=== PATIENT | male | born 1935 | race Asian ===

== ENCOUNTER 2018-02-14 18:44 | Inpatient (IN) | payer OTHER ==
[~2018-02-14] VITALS: Ht 172.7 cm; Wt 63.0 kg
--- NOTE | 2018-02-14 18:44 | NUR ---
PT BIBA TO ER BED 05
[2018-02-14 18:49] VITALS: BP 129/86
--- NOTE | 2018-02-14 18:55 | NUR ---
82Y BIB BIBA FROM [facility] FOR LEFT FEMUR FX. SHORTENING AND ROTATION OF LEFT LEG. CAP RE-FILL < 3 SECONDS. PULSE +3. PAIN UPON MOVEMENT. PT WITH HX OF DEMENTIA. PT IS AWAKE AND ALERT. RR AR EVEN AND UNLABORED. VSS. AWAITING ER MD SCHERER. WILL CONTINUE TO MONITOR.
[2018-02-14] MEDS ORDERED: HEPA500056 SUBQ (18:57)
[2018-02-14] MEDS ORDERED: TRAM50TA1 PO (19:06)
[2018-02-14] MEDS ORDERED: ACET-2869 PO (19:06)
[2018-02-14] MEDS ORDERED: MELO15TA11 PO (19:06)
[2018-02-14] MEDS ORDERED: BISA-213 RC (19:06)
[2018-02-14] MEDS ORDERED: QUET25TA PO (19:06)
[2018-02-14] MEDS ORDERED: METO50TE2 PO (19:06)
[2018-02-14] MEDS ORDERED: IRBE300T56 PO (19:06)
[2018-02-14] MEDS ORDERED: ESOM40EC PO (19:06)
[2018-02-14] MEDS ORDERED: SENN-3 PO (19:06)
[2018-02-14] MEDS ORDERED: SITA50TA3 PO (19:06)
[2018-02-14] MEDS ORDERED: ATA25 PO (19:06)
--- NOTE | 2018-02-14 19:19 | NUR ---
Pt report given to alison marcelino. Transfer of care at this time.
--- NOTE | 2018-02-14 19:20 | NUR ---
pt laying in bed, vss, in no apparent distress at this time.
[2018-02-14] MEDS ORDERED: NACL 0.9% 1,000 ML IV ONE (19:30)
[2018-02-14] MEDS ORDERED: fentaNYL 0.05 MG/ML VIAL IVP ONE (19:30)
--- NOTE | 2018-02-14 19:39 | NUR ---
X-Ray at bedside.
--- NOTE | 2018-02-14 19:59 | NUR ---
lab at bedside
[2018-02-14 20:30] LABS: ANION GAP 13.5 (8-16); CARBON DIOXIDE 26.4 mmol/L (21-32); CHLORIDE 101 mmol/L (98-107); CREATININE 1.4 mg/dL (0.7-1.3); GLUCOSE 137 mg/dL (74-106); POTASSIUM 4.9 mmol/L (3.5-5.1); SODIUM SERUM 136 mmol/L (136-145); UREA NITROGEN, BLOOD 26 mg/dL (7-18)
[2018-02-14 20:31] LABS: BASOPHILS # (AUTO) 0.1 K/uL (0.00-0.22); BASOPHILS % (AUTO) 1.1 % (0.0-2.0); EOSINOPHILS # (AUTO) 0.2 K/uL (0-0.4); EOSINOPHILS % (AUTO) 3.2 % (0.0-4.0); HEMATOCRIT 37.8 % (36-52); HEMOGLOBIN 12.5 g/dL (12.0-18.0); LYMPHOCYTES # (AUTO) 1.5 K/uL (2.0-11.5); LYMPHOCYTES % (AUTO) 24.2 % (20.5-51.1); MEAN CORPUSCULAR HEMOGLOBIN 33 pg (27-31); MEAN CORPUSCULAR HGB CONC 33 g/dL (33-37); MEAN CORPUSCULAR VOLUME 100.6 fL (80-94); MONOCYTES # (AUTO) 0.5 K/uL (0.8-1.0); MONOCYTES % (AUTO) 7.8 % (1.7-9.3); NEUTROPHILS # (AUTO) 3.9 K/uL (1.8-7.7); NEUTROPHILS % (AUTO) 63.7 % (42.2-75.2); PLATELET COUNT (AUTO) 280 K/uL (140-450); RED BLOOD CELL COUNT(AUTO) 3.76 MIL/uL (4.20-6.10); RED CELL DISTRIBUTION WIDTH 15.3 % (11.6-13.7); WHITE BLOOD COUNT (AUTO) 6.2 K/uL (4.8-10.8)
[2018-02-14 20:45] LABS: PROTHROMBIN TIME 10.9 secs (10.8-13.4)
--- NOTE | 2018-02-14 21:24 | NUR ---
PT TAKEN TO CT VIA PEPITO PT AWAKE
--- NOTE | 2018-02-14 21:57 | NUR ---
Patient will be admitted to care of DR. DENNEY. Admited to TELE. Will go to room 122-A. Belongings list completed. Report to BERNARD.
[2018-02-14] MEDS ORDERED: NACL 0.9% 1,000 ML IV SCH (22:06)
[2018-02-14] MEDS ORDERED: DOCUSATE SODIUM 100 MG GELCAP PO PRN (22:10)
[2018-02-14] MEDS ORDERED: ACETAMINOPHEN 325 MG TAB PO PRN (22:10)
[2018-02-14] MEDS ORDERED: HYDROcodone/APAP 7.5/325 MG 1 TAB PO PRN (22:10)
--- NOTE | 2018-02-14 22:25 | NUR ---
Pt transferred to Tele via BED 122A WITH TRIPP WYLIE AND TOMMY MACEDO.
--- NOTE | 2018-02-14 22:28 | NUR ---
DR. LYNNE EVALUATING PATIENT
[2018-02-14 22:55] LABS: CHOL/HDL RATIO 4.3 (1-4.5); FREE T4 (FREE THYROXINE) 1.34 ng/dL (0.76-1.46); MAGNESIUM 1.7 mg/dL (1.8-2.4); PHOSPHORUS 3.8 mg/dL (2.5-4.9); THYROID STIMULATING HORMONE 0.61 uIU/mL (0.34-3.74)
--- NOTE | 2018-02-14 23:00 | NUR ---
PT ARRIVED TO UNIT VIA GURNEY ACCOMPANIED BY WINEMAKER AND PARACHUTE RIGGER. RECEIVED REPORT AT PT BEDSIDE FROM WINEMAKER, FOR CONTINUITY OF CARE. PATIENT IS A/OX2 TO SELF AND PLACE. PT ON ROOM AIR. 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 PT IS NPO. PATIENT HAS 20G IV TO RIGHT FOREARM. RESPIRATIONS EVEN AND UNLABORED. UPDATED BOARD. VITAL SIGNS WITHIN NORMAL LIMITS. PT STABLE, NO SIGNS OF DISTRESS NOTED AT THIS TIME. BED IN LOWEST POSITION, BED ALARM ON. CALL LIGHT WITHIN REACH, WILL CONTINUE TO MONITOR. Addendum: 02/15/18 at 0620 by Virginia Banda RN SKIN NOT INTACT, PT HAS HEALING SURGICAL INCISION TO RIGHT HIP.
[2018-02-15] VITALS: BP 157/87
--- NOTE | 2018-02-15 01:00 | NUR ---
SET UP IV FLUIDS AT A RATE OF 100ML/HR PER ORDER PT TOLERATING WELL. PT TAKING OFF TELE MONITOR. EDUCATED PT ON KEEPING TELE MONITOR ON AND PUT IT ON HIM AGAIN. PT TOOK IT OFF IMMEDIATELY AND THREW IT. INFORMED DR LYNNE, HE SAID "OK" NO ORDERS GIVEN.
[2018-02-15] MEDS ORDERED: METF500T PO (01:57)
[2018-02-15] MEDS ORDERED: traMADol 50 MG TAB PO PRN (02:55)
[2018-02-15] MEDS ORDERED: BISACODYL 10 MG SUPP RC PRN (02:55)
[2018-02-15] MEDS ORDERED: HYDROcodone/APAP 5/325 MG 1 TAB TAB PO PRN (02:55)
[2018-02-15] MEDS ORDERED: DEXTROSE 50% 50 ML SYR IVP PRN (03:05)
[2018-02-15] MEDS ORDERED: INSULIN LISPRO SLIDING SCALE 100 UNITS/ML VIAL SUBQ PRN (03:05)
--- NOTE | 2018-02-15 03:48 | NUR ---
PT STATES TO CALL POLICE AND TELL THEM TO TAKE HIM TO [place]. PT SEEMS CONFUSED, ORIENTED HIM AND PT NOW MORE CALMED.
[2018-02-15 04:00] VITALS: BP 155/86
--- NOTE | 2018-02-15 05:13 | NUR ---
PT WILL NOT ALLOW FOR TELE MONITOR APPLICATION. PT STILL SAYING HE WANTS TO GO TO [place], ORIENTED PT TO SITUATION AGAIN, PT VERBALIZED UNDERSTANDING AGAIN.
--- NOTE | 2018-02-15 05:45 | NUR ---
EKG OBTAINED AND CHARTED.
[2018-02-15] MEDS: BLOOD GLUCOSE MONITORING 1 DEV DEV FS SCH ×2 (06:18→12:25)
[2018-02-15 06:55] LABS: EOSINOPHILS # (AUTO) 0.2 K/uL (0-0.4); EOSINOPHILS % (AUTO) 4.6 % (0.0-4.0); HEMATOCRIT 38.5 % (36-52); HEMOGLOBIN 12.7 g/dL (12.0-18.0); LYMPHOCYTES # (AUTO) 1.6 K/uL (2.0-11.5); LYMPHOCYTES % (AUTO) 32.3 % (20.5-51.1); MEAN CORPUSCULAR HEMOGLOBIN 33 pg (27-31); MEAN CORPUSCULAR HGB CONC 33 g/dL (33-37); MEAN CORPUSCULAR VOLUME 100.9 fL (80-94); MONOCYTES # (AUTO) 0.4 K/uL (0.8-1.0); MONOCYTES % (AUTO) 8.1 % (1.7-9.3); NEUTROPHILS # (AUTO) 2.7 K/uL (1.8-7.7); PLATELET COUNT (AUTO) 279 K/uL (140-450); RED BLOOD CELL COUNT(AUTO) 3.82 MIL/uL (4.20-6.10); RED CELL DISTRIBUTION WIDTH 14.9 % (11.6-13.7); WHITE BLOOD COUNT (AUTO) 4.9 K/uL (4.8-10.8)
[2018-02-15 07:20] LABS: MAGNESIUM 1.6 mg/dL (1.8-2.4); PHOSPHORUS 3.5 mg/dL (2.5-4.9)
--- NOTE | 2018-02-15 07:30 | NUR ---
ENDORSED PT TO DAY SHIFT RN FOR CONTINUITY OF CARE. PT IN STABLE CONDITION.
--- NOTE | 2018-02-15 07:31 | NUR ---
RECEIVED PT FROM PM NURSE AT BEDSIDE FOR CONTUINITY OF CARE. PT AOX2. HAS IV 22G ON RT FA, IV INFUSING WELL. CODE STATUS NOT DETERMINED AT THIS TIME. CHARGE NURSE INFORMED. WILL FOLLOW UP WITH RESIDENT. PT STABLE AT THIS TIME. NO SIGN OF DISTRESS. WILL CONTINUE TO MONITOR PT.
[2018-02-15] MEDS ORDERED: DEXT 5% / NACL 0.45% 1,000 ML IV SCH (07:50)
[2018-02-15 08:00] VITALS: BP 154/88
[2018-02-15 08:32] LABS: ALBUMIN 3.1 g/dL (3.4-5.0); ANION GAP 14.6 (8-16); ASPARTATE AMINOTRANSFERASE 14 U/L (15-37); CARBON DIOXIDE 25.5 mmol/L (21-32); CHLORIDE 102 mmol/L (98-107); CREATININE 1.2 mg/dL (0.7-1.3); GLUCOSE 109 mg/dL (74-106); POTASSIUM 5.1 mmol/L (3.5-5.1); SODIUM SERUM 137 mmol/L (136-145); TOTAL BILIRUBIN 1.3 mg/dL (0.0-1.0); UREA NITROGEN, BLOOD 21 mg/dL (7-18)
--- NOTE | 2018-02-15 08:45 | NUR ---
PATIENT HAS BEEN SCREENED AND CATEGORIZED MODERATE NUTRITION RISK. PATIENT WILL BE SEEN WITHIN 3-5 DAYS OF ADMISSION. 02/17/18 02/19/[address]
[2018-02-15] MEDS ORDERED: hydrOXYzine HCL 25 MG TAB PO SCH (09:00)
[2018-02-15] MEDS ORDERED: METOPROLOL SUCCINATE 50 MG TABER PO SCH (09:00)
[2018-02-15] MEDS ORDERED: metFORMIN 500 MG TAB PO SCH (09:00)
[2018-02-15] MEDS ORDERED: SENNA 8.6 MG TAB PO SCH (09:00)
[2018-02-15] MEDS ORDERED: PANTOPRAZOLE 40 MG TABEC PO SCH (09:00)
[2018-02-15] MEDS ORDERED: VALSARTAN 80 MG TAB PO SCH (09:00)
--- NOTE | 2018-02-15 09:30 | NUR ---
ADMINISTERED MEDICATION ORDERED. PT TOLERATED WELL. DENIES PAIN AT THIS TIME. PT AT BEDSIDE TO PUT PT ON VANESSA'S TRACTION AND TRAPEZE. PT LITTLE CONFUSED, NO FACIAL GRIMACING. NO SIGN OF DISTRESS.SAFETY MEASURE IN PLACE. WILL CONTINUE TO MONITOR PT.
[2018-02-15] MEDS ORDERED: MAG SULF 2000 MG/WATER PREMIX 100 ML IV SCH (10:00)
--- NOTE | 2018-02-15 10:30 | NUR ---
PT ASSISTED WITH BED FOR BM AND URINAL . HAD BM MODERATE AND URINATED. NO SIGN OF DISTRESS. PYROTECHNIST AT BEDSIDE. PT ON VANESSA'S TRACTION AND TRAPEZE. ORIENTED PT THAT HE IS IN HOSPITAL. CALL LIGHT WITHIN REACH. TAUGHT TO USE CALL LIGHT. PT HAD RETUN DEMONSTRATION. BED AT LOWER POSITION. WILL CONTINUE TO MONITOR PT.
[2018-02-15] MEDS ORDERED: HUMSLIDE SUBQ (10:35)
[2018-02-15] MEDS ORDERED: ACET-1182 PO (10:35)
[2018-02-15] MEDS ORDERED: GLUC-805 FS (10:35)
[2018-02-15] MEDS ORDERED: DOCU-299 PO (10:35)
[2018-02-15] MEDS ORDERED: ACET-9529 PO (10:35)
[2018-02-15] MEDS ORDERED: D50SYR IVP (10:35)
--- NOTE | 2018-02-15 10:52 | NUR ---
PT NOTES CHART REVIEWED AND CLEARED FOR PT BY RN TO APPLY VANESSA TRACTION AND OHT. PATIENT IN SEMIFOWLER POSITION RESTING, DENIES PAIN AT THIS TIME AND EDUCATION ON BUCKS TRACTION/OHT APPLICATION. VERBALIZED UNDERSTANDING AND ABLE TO UTILIZE OHT TO REPOSITION SELF HIGHER IN BED. BUCKS TRACTION APPLIED BY 2ND PT STAFF WITH 7LBS. NO PAIN OF FACIAL GRIMACING NOTED/EXPRESSED. PATIENT REPOSITIONED IN BED WITH PROPER ALIGNMENT WITH BUCKS BOOT. TRAY AND CALL LIGHT IN REACH. OHTx1 AND BUCKS TRACTION APPLICATIONx1 Addendum: 02/15/18 at 1519 by Lauren Cortez PT PHYSICAL THERAPY CO-SIGN The Physical Therapy Progress Notes documented by Business Leader have been reviewed. Reviewed/Co-Signed by: Lauren Cortez,PT Documentation Done by: Bill Metzger PTA
--- NOTE | 2018-02-15 11:13 | NUR ---
Spoke to Oniel greenhouse staff at [facility] and I faxed face sheet, h&p and the order. Oniel called back and received the fax and will call the floor when bed available.
--- NOTE | 2018-02-15 11:31 | NUR ---
ADMINISTERED MAGNESIUM RIDER TO PT. PT TOLERATING WELL. WILL CONTINUE TO MONITOR PT.
[2018-02-15 12:00] VITALS: BP 161/82
--- NOTE | 2018-02-15 12:00 | NUR ---
PT ON BEDSIDE, SITTING AND HAVING LUNCH. NO SIGN OF DISTRESS. BS 124 NOTED. ALL SAFETY MEASURE IN PLACE . WILL CONTINUE TO MONITOR.
--- NOTE | 2018-02-15 13:00 | NUR ---
PT TOO MUCH CONFUSED. CONTINUES TO GET OUT OF BED. PULLED OUT HIS IV. OREINTED PT NOT TO GET OFF THE BED. PT ON VANESSA TRACTION. CONTINUOUS ORIENTATION NEEDED AT THIS TIME. ALL SAFETY MEASURE IN PLACE. WILL CONTINUE TO MONITOR PT.
--- NOTE | 2018-02-15 13:22 | NUR ---
Called Oniel the nursing sup. at [place] and stated that there is no bed available at this time but will have one available in 2-3 hours. He has the MST number and will call when bed available.
--- NOTE | 2018-02-15 14:51 | NUR ---
NORMA ARENASO CALLED AND GAVE ROOM 240-B, DRILLER MULTIPLE SPINDLE TIME WILL BE 5:30 PM, REPORT TO
--- NOTE | 2018-02-15 15:00 | NUR ---
PT PULLED HIS IV OUT. REINSERTED HIS IV , OMID ALMAGUER AT BEDSIDE FOR HELP. REORIENTED PT NOT TO PULL HIS IV. CONTINUE TO TRY GETTING OUT OF BED. ALL SAFETY MEASURE IN PLACE. WILL CONTINUE TO MONITOR PT.
--- NOTE | 2018-02-15 17:25 | NUR ---
CALLED TO [facility]. GAVE REPORT TO TRIPP DOSHI OVER THE PHONE. ASKED TICO TO CALL IF ANY QUESTIONS REGARDING PT. [facility] AT BEDSIDE TO RUG UNDERLAY MACHINE OPERATOR PT. ASSISTED TRANSFERRING TO [facility]. PT HAS PERIPHERAL LINE ON RT FA 20G. PT STABLE AT THIS TIME . PT LEFT THE HOSPITAL WITH ALL HIS BELONGINGS.
[2018-02-15] MEDS ORDERED: QUEtiapine FUMARATE 25 MG TAB PO SCH (21:00)
[2018-02-16 08:16] LABS: T4 (THYROXINE) 10.3 ug/dL (4.5-12.0)
--- NOTE | 2018-02-19 07:49 | NUR ---
WOUND CARE EVALUATION NOT DONE, PT. DISCHARGED.
== END 2018-02-15 17:25 | disposition short-term general hospital (02) | DRG 535 ==
LOC: MED 18:44 → MTU 22:08
PROVIDERS: ADMIT General Practice; ATTEND General Practice
DX: S72.012A Unspecified intracapsular fracture of left femur, initial encounter for closed fracture (principal); N17.0 Acute kidney failure with tubular necrosis; D68.59 Other primary thrombophilia; J98.11 Atelectasis; E11.65 Type 2 diabetes mellitus with hyperglycemia; K21.9 Gastro-esophageal reflux disease without esophagitis; I10 Essential (primary) hypertension; F41.9 Anxiety disorder, unspecified; F03.90 Unspecified dementia, unspecified severity, without behavioral disturbance, psychotic disturbance, mood disturbance, and anxiety; Z86.73 Personal history of transient ischemic attack (TIA), and cerebral infarction without residual deficits; W17.89XA Other fall from one level to another, initial encounter; Y93.89 Activity, other specified; Y92.89 Other specified places as the place of occurrence of the external cause; Y99.8 Other external cause status; E78.1 Pure hyperglyceridemia; E11.51 Type 2 diabetes mellitus with diabetic peripheral angiopathy without gangrene; Z87.81 Personal history of (healed) traumatic fracture
CPT/HCPCS: 36415; 71045; 72192; 73502; 80048; 80053; 82150; 82948; 83036; 83690; 83735; 83880; 84100; 84436; 84439; 84443; 84479; 84484; 85025; 85610; 85730; 86886; 86900; 86901; 87081; 93005; 96361; 96374; 99285; J1815; J3010; J3475; J7030

== ENCOUNTER 2018-03-06 10:39 | Inpatient (IN) | payer OTHER, MEDICAID ==
[~2018-03-06] VITALS: Ht 152.4 cm; Wt 63.1 kg
[~2018-03-06 10:39] MED LIST: ACET-1182 PO; ACET-2869 PO; ACET-9529 PO; ATA25 PO; BISA-213 RC; D50SYR IVP; DOCU-299 PO; ESOM40EC PO; GLUC-805 FS; HEPA500056 SUBQ; HUMSLIDE SUBQ; IRBE300T56 PO; MELO15TA11 PO; METF500T PO; METO50TE2 PO; QUET25TA PO; SENN-3 PO; SITA50TA3 PO; TRAM50TA1 PO
[2018-03-06 10:43] VITALS: BP 114/71
--- NOTE | 2018-03-06 10:43 | NUR ---
PT BIBA BLS TO ER BED 03
[2018-03-06] MEDS ORDERED: ZOLP10TA1 PO (10:54)
[2018-03-06] MEDS ORDERED: SLIDE SUBQ (10:54)
--- NOTE | 2018-03-06 11:00 | NUR ---
PATIENT PRESENTS TO ED BIBA FOR C/O ONE EPISODE OF N/V DARK RED BLOOD DURING PHYSICAL THERAPY AT [facility]. PT DENIES ABD PAIN, DIZZINESS OR SOB. PT CURRNETLY ON BLOOD THINNER FOR BEING APPROXIMATELY 16 DAYS STATUS POST LEFT HIP REPLACEMENT DR TOTH. HX: DEMENTIA, HTN, DM, CVA, RT HIP REPLACEMENT. DENIES DIARRHEA; SKIN IS PINK/WARM/DRY; AAOX4 WITH EVEN AND STEADY GAIT; LUNGS CLEAR BL; HR EVEN AND REGULAR; PT DENIES ANY FEVER, CP, SOB, OR COUGH AT THIS TIME; PATIENT STATES PAIN OF 0/10 AT THIS TIME; VSS; PATIENT POSITIONED FOR COMFORT; HOB ELEVATED; BEDRAILS UP X2; BED DOWN. ER MD MADE AWARE OF PT STATUS.
[2018-03-06] MEDS ORDERED: PANTOPRAZOLE 40 MG INJ VIAL IVP ONE (11:35)
[2018-03-06] MEDS ORDERED: NACL 0.9% 1,000 ML IV ONE (11:35)
[2018-03-06] MEDS ORDERED: ONDANSETRON 4 MG/2 ML VIAL IVP ONE (11:35)
[2018-03-06 12:00] LABS: HEMATOCRIT 36.5 % (36-52); MEAN CORPUSCULAR HEMOGLOBIN 33 pg (27-31); MEAN CORPUSCULAR HGB CONC 33 g/dL (33-37); MEAN CORPUSCULAR VOLUME 100.8 fL (80-94); PLATELET COUNT (AUTO) 272 K/uL (140-450); RED BLOOD CELL COUNT(AUTO) 3.63 MIL/uL (4.20-6.10); RED CELL DISTRIBUTION WIDTH 13.9 % (11.6-13.7); WHITE BLOOD COUNT (AUTO) 10.4 K/uL (4.8-10.8)
[2018-03-06 12:13] LABS: CARBON DIOXIDE 25.3 mmol/L (21-32); CHLORIDE 103 mmol/L (98-107); CREATININE 1.4 mg/dL (0.7-1.3); GLUCOSE 145 mg/dL (74-106); SODIUM SERUM 138 mmol/L (136-145); UREA NITROGEN, BLOOD 49 mg/dL (7-18)
[2018-03-06 12:14] LABS: POTASSIUM 5.3 mmol/L (3.5-5.1)
[2018-03-06 12:17] LABS: EOSINOPHILS % (MANUAL) 1 % (0-4); LYMPHOCYTES % (MANUAL) 14 % (20-46); MONOCYTES % (MANUAL) 4 % (5-12)
[2018-03-06 12:21] LABS: ASPARTATE AMINOTRANSFERASE 46 U/L (15-37); TOTAL BILIRUBIN 0.5 mg/dL (0.0-1.0)
[2018-03-06 12:23] LABS: PROTHROMBIN TIME 11.6 secs (10.8-13.4)
[2018-03-06] MEDS ORDERED: SODIUM POLYSTYRENE 15 GM/60 ML UDBTL PO ONE (12:35)
[2018-03-06] MEDS ORDERED: NACL 0.9% 1,000 ML IV SCH (13:03)
[2018-03-06] MEDS ORDERED: ACETAMINOPHEN 325 MG TAB PO PRN (13:05)
[2018-03-06] MEDS ORDERED: ONDANSETRON 4 MG/2 ML VIAL IM/IVP PRN (13:05)
[2018-03-06] MEDS ORDERED: DOCUSATE SODIUM 100 MG GELCAP PO PRN (13:05)
--- NOTE | 2018-03-06 13:30 | NUR ---
Patient will be admitted to care of DR PITTS. Admited to TELE. room 110A. Belongings list completed. Report to GIVEN BY TRIPP SILVER TO TRIPP DUMAS
[2018-03-06 14:00] VITALS: BP 97/65
--- NOTE | 2018-03-06 14:00 | NUR ---
PATIENT ADMITTED FROM [facility] C/O HEMATEMESIS. HX DEMENTIA, HTN, DM, ORIF L/R. PATIENT IS ALERT AND ORIENTED, PERIODS OF CONFUSION. PATIENT DENIES PAIN. PATIENT HAS HEALED RIGHT HIP SCARRING. LEFT HIP HAS MARTHA. CLEAN AND DRY LEFT OPEN TO AIR. DENIES PAIN AT THIS TIME. IV SITE PATENT AND INTACT. DENIES N/V. PATIENT SEEN BY DR. RIOS AT BEDSIDE. FALL PRECAUTIONS PUT IN PLACE. BED IN LOWEST POSITION. BED ALARMS CHECKED. CALL LIGHT WITHIN REACH.
[2018-03-06 14:30] LABS: CHOL/HDL RATIO 3.3 (1-4.5); MAGNESIUM 1.7 mg/dL (1.8-2.4); PHOSPHORUS 4.4 mg/dL (2.5-4.9); THYROID STIMULATING HORMONE 0.23 uIU/mL (0.34-3.74)
[2018-03-06] MEDS ORDERED: DEXTROSE 50% 50 ML SYR IVP PRN (15:30)
[2018-03-06] MEDS: HYDROcodone/APAP 5/325 MG 1 TAB TAB PO PRN (15:50)
[2018-03-06] MEDS ORDERED: MAGNESIUM OXIDE 400 MG TAB PO SCH (15:50)
--- NOTE | 2018-03-06 16:00 | NUR ---
SCDS PLACED ON PATIENT. PATIENT'S SON AT BEDSIDE. PATIENT REFUSES TO KEEP SCDS ON, PATIENT AND SON MADE AWARE OF RISKS REGARDING HAVING NO DVT PROPHYLAXIS, VERBALIZED UNDERSTANDING, REMOVED SCDS, DR. RIOS MADE AWARE, NO NEW ORDERS.
[2018-03-06] MEDS: LACTULOSE 20 GM/30 ML UDC PO SCH (16:24)
[2018-03-06] MEDS: DEXT 5% /NACL 0.9% 1,000 ML IV SCH (16:25)
[2018-03-06] MEDS: BLOOD GLUCOSE MONITORING 1 DEV DEV FS SCH ×2 (16:30→21:02)
[2018-03-06] MEDS: INSULIN LISPRO SLIDING SCALE 100 UNITS/ML VIAL SUBQ PRN (17:39)
--- NOTE | 2018-03-06 18:46 | NUR ---
PATIENT SEEN PULLING OFF LEADS AND REMOVING IVS. PATIENT FOUND WITH IV REMOVED, CANULA INTACT. NEW IV STARTED RFA #22. PATENT AND INTACT. PATIENT SEEN PULLING AT LINES AGAIN, ORIENTED PATIENT TO PLACE AND EVENT. IN AGREEMENT.
--- NOTE | 2018-03-06 19:30 | NUR ---
SBAR REPORT GIVEN TO JEREMY FROST AT PT BEDSIDE. PATIENT RESTING IN BED AT THIS TIME. ORIENTED TO HOSPITAL ENVIRONMENT AND PLAN OF CARE. IN AGREEMENT. NO ACUTE DISTRESS NOTED. IV SITE PATENT AND INTACT.
--- NOTE | 2018-03-06 19:31 | NUR ---
REPORT RECEIVED FROM AM NURSE AT BEDSIDE. PT IN STABLE CONDITION. AAOX2. BOARD UPDATED AND INTRODUCED SELF TO PT. PT NOT IN ANY ACUTE DISTRESS. BED LOCKED IN LOW POSITION. CALL CASIANO WITHIN REACH.
[2018-03-06 20:00] VITALS: BP 106/72
--- NOTE | 2018-03-06 20:45 | NUR ---
PM MEDS GIVEN. PT TOLERATED WELL.
[2018-03-06] MEDS: QUEtiapine FUMARATE 25 MG TAB PO SCH (20:47)
[2018-03-06] MEDS: SENNA 8.6 MG TAB PO SCH (20:47)
--- NOTE | 2018-03-06 23:00 | NUR ---
PT ASLEEP IN BED COMFORTABLY. PT NOT IN ANY ACUTE DISTRESS. WILL CONTINUE TO MONITOR.
[2018-03-07] VITALS (7 sets, daily range): BP systolic 73–122; BP diastolic 48–69
--- NOTE | 2018-03-07 00:35 | NUR ---
PT VS STABLE. ASLEEP BUT AROUSABLE. PT WOKE UP DURING VS CHECK AND TOLD ME I WAS NUMBER ONE AND GAVE ME A THUMBS UP. WILL CONTINUE TO MONITOR.
--- NOTE | 2018-03-07 02:00 | NUR ---
PT HAD A BM THAT WAS BLACK AND WATERY. REPORTED TO .
[2018-03-07] MEDS: DEXT 5% /NACL 0.9% 1,000 ML IV SCH ×3 (03:51→23:05)
--- NOTE | 2018-03-07 04:00 | NUR ---
VS TAKEN. PT TALKING IN SLEEP AND SLIGHT TOSSING AND TURNING. PT NOT IN ANY ACUTE DISTRESS. WILL CONTINUE TO MONITOR.
[2018-03-07] MEDS: BLOOD GLUCOSE MONITORING 1 DEV DEV FS SCH ×4 (06:26→20:24)
[2018-03-07 06:29] LABS: T4 (THYROXINE) 8.5 ug/dL (4.5-12.0)
--- NOTE | 2018-03-07 07:10 | NUR ---
REPORT GIVEN TO AM NURSE. PT IN STABLE CONDITION.
--- NOTE | 2018-03-07 07:10 | NUR ---
RECEIVED REPORT FROM HUMANITIES AND LANGUAGES PROFESSOR RN. PT SLEEPING IN BED, AROUSABLE. ABLE TO MAKE NEEDS. ALBANIAN SPEAKING. SKIN DRY AND WARM TO TOUCH. LUNGS CLEAR ON AUSCULTATION, EVEN EXPANSION. IN ROOM AIR, SPO2 97%RIGHT FOREARM 22G. D5%NS RUNNING AT 80 ML/HR. INTACT IV LINE. ABDOMEN SOFT, ROUND AND NON-TENDER. ACTIVE BOWEL SOUND. BRUISES ON LEFT UPPER EXTREMITY. MARTHA#9 NOTED ON LEFT HIP, INTACT. NO SWELLING, NO REDNESS OR DRAINAGE AT SITE. SKIN INTACT EXCEPT S/P SURGICAL SITE. KEPT HOB ELEVATED. BED IN LOW POSITION LOCKED. CALL LIGHT WITHIN REACH. WILL CONTINUE TO MONITOR.
[2018-03-07 07:13] LABS: BASOPHILS % (AUTO) 0.4 % (0.0-2.0); EOSINOPHILS # (AUTO) 0.2 K/uL (0-0.4); EOSINOPHILS % (AUTO) 1.4 % (0.0-4.0); HEMATOCRIT 33.1 % (36-52); HEMOGLOBIN 10.8 g/dL (12.0-18.0); LYMPHOCYTES # (AUTO) 1.2 K/uL (2.0-11.5); LYMPHOCYTES % (AUTO) 10.4 % (20.5-51.1); MEAN CORPUSCULAR HEMOGLOBIN 33 pg (27-31); MEAN CORPUSCULAR HGB CONC 33 g/dL (33-37); MEAN CORPUSCULAR VOLUME 100.4 fL (80-94); MONOCYTES # (AUTO) 0.6 K/uL (0.8-1.0); MONOCYTES % (AUTO) 5.2 % (1.7-9.3); NEUTROPHILS # (AUTO) 9.4 K/uL (1.8-7.7); NEUTROPHILS % (AUTO) 82.6 % (42.2-75.2); PLATELET COUNT (AUTO) 223 K/uL (140-450); WHITE BLOOD COUNT (AUTO) 11.3 K/uL (4.8-10.8)
[2018-03-07 07:30] LABS: ANION GAP 13.6 (8-16); CARBON DIOXIDE 24.4 mmol/L (21-32); CHLORIDE 107 mmol/L (98-107); CREATININE 1.3 mg/dL (0.7-1.3); GLUCOSE 129 mg/dL (74-106); SODIUM SERUM 141 mmol/L (136-145); UREA NITROGEN, BLOOD 60 mg/dL (7-18)
--- NOTE | 2018-03-07 08:51 | NUR ---
PATIENT HAS BEEN SCREENED AND CATEGORIZED MODERATE NUTRITION RISK. PATIENT WILL BE SEEN WITHIN 3-5 DAYS OF ADMISSION. 03/09/18 03/11/[address]
[2018-03-07] MEDS: SENNA 8.6 MG TAB PO SCH ×2 (09:00→20:25)
[2018-03-07] MEDS: LACTULOSE 20 GM/30 ML UDC PO SCH ×2 (09:00→20:25)
[2018-03-07] MEDS: PANTOPRAZOLE 40 MG INJ VIAL IVP SCH (09:50)
[2018-03-07] MEDS: METOPROLOL SUCCINATE 50 MG TABER PO SCH (09:51)
--- NOTE | 2018-03-07 09:58 | NUR ---
ADMINISTERED MEDICINE. TOLERATING WELL.
[2018-03-07] MEDS: HYDROcodone/APAP 5/325 MG 1 TAB TAB PO PRN (11:40)
--- NOTE | 2018-03-07 17:28 | NUR ---
RESTING IN BED. NO ACUTE RESOIRATORY DISTRESS NOTED. NURSE AT BEDSIDE.
--- NOTE | 2018-03-07 18:38 | NUR ---
NO CHANGE IN LOC. STAFF AT BEDSIDE. TALKING WITH STAFF.
--- NOTE | 2018-03-07 19:34 | NUR ---
ENDORSED TO DRAW BENCH OPERATOR RN FOR CONTINUITY OF CARE. PT ON STABLE CONDITION.
--- NOTE | 2018-03-07 19:35 | NUR ---
PATIENT REPORT RECEIVED FROM MORNING NURSE AT BEDSIDE. PATIENT IS AWAKE AND ALERT. NO SIGNS AND SYMPTOMS OF DISTRESS NOTED. BREATHING EVEN AND UNLABORED. NO C/O PAIN AT THIS TIME. IV SITE NOTED ON RIGHT FOREARM, IV FLUID INFUSING WELL. BED IN LOWEST POSITION, SIDE RAILS UP AND CALL LIGHT WITHIN REACH. WILL CONTINUE TO MONITOR
--- NOTE | 2018-03-07 20:00 | NUR ---
MEDICATION EDUCATION GIVEN. PATIENT VERBALIZED UNDERSTANDING. MEDICATION ADMINISTERED ORDERED. PATIENT TOLERATED WELL. WILL CONTINUE TO MONITOR
[2018-03-07] MEDS: QUEtiapine FUMARATE 25 MG TAB PO SCH (20:25)
[2018-03-07] MEDS: INSULIN LISPRO SLIDING SCALE 100 UNITS/ML VIAL SUBQ PRN (21:58)
--- NOTE | 2018-03-07 22:28 | NUR ---
DR MORTON HAS NOT RETURNED THE CALL FROM MORNING SHIFT NURSE. LEFT ANOTHER VOICEMAIL ON HIS PHONE
--- NOTE | 2018-03-07 23:58 | NUR ---
CHECKED ON PATIENT. PATIENT IS ASLEEP. NO SIGNS AND SYMPTOMS OF DISTRESS NOTED. BREATHING EVEN AND UNLABORED. WILL CONTINUE TO MONITOR
[2018-03-08] VITALS (7 sets, daily range): BP systolic 115–149; BP diastolic 60–81
[2018-03-08] MEDS ORDERED: ZOLPIDEM 5 MG TAB PO ONE (00:55)
--- NOTE | 2018-03-08 01:00 | NUR ---
PATIENT AWAKE. STATED THAT HES ONLY SLEPT 1 HOUR. REQUESTED A SLEEPING PILL. NOTIFIED DR. WU. ORDERS RECEIVED
--- NOTE | 2018-03-08 03:30 | NUR ---
IV SITE INFILTRATED. IV SITE DISCONTINUED. IV CANNULA INTACT. NEW IV SITE INSERTED LEFT FOREARM 20 GAUGE. 2 ATTEMPTS MADE. PATIENT TOLERATED WELL. WILL CONTINUE TO MONITOR
[2018-03-08] MEDS: MORPHINE SULFATE 2 MG/ML SYR IVP PRN (03:47)
--- NOTE | 2018-03-08 05:39 | NUR ---
PATIENT RESTING COMFORTABLY IN BED. NO SIGNS AND SYMPTOMS OF DISTRESS NOTED. BREATHING EVEN AND UNLABORED. WILL CONTINUE TO MONITOR
[2018-03-08] MEDS: BLOOD GLUCOSE MONITORING 1 DEV DEV FS SCH ×4 (06:00→21:24)
[2018-03-08 06:37] LABS: BASOPHILS % (AUTO) 0.3 % (0.0-2.0); EOSINOPHILS # (AUTO) 0.3 K/uL (0-0.4); EOSINOPHILS % (AUTO) 3.2 % (0.0-4.0); HEMATOCRIT 27.3 % (36-52); HEMOGLOBIN 9.2 g/dL (12.0-18.0); LYMPHOCYTES # (AUTO) 1.3 K/uL (2.0-11.5); LYMPHOCYTES % (AUTO) 14.2 % (20.5-51.1); MEAN CORPUSCULAR HEMOGLOBIN 34 pg (27-31); MEAN CORPUSCULAR HGB CONC 34 g/dL (33-37); MEAN CORPUSCULAR VOLUME 100.1 fL (80-94); MONOCYTES # (AUTO) 0.6 K/uL (0.8-1.0); MONOCYTES % (AUTO) 6.6 % (1.7-9.3); NEUTROPHILS # (AUTO) 7.1 K/uL (1.8-7.7); NEUTROPHILS % (AUTO) 75.7 % (42.2-75.2); PLATELET COUNT (AUTO) 191 K/uL (140-450); RED BLOOD CELL COUNT(AUTO) 2.72 MIL/uL (4.20-6.10); RED CELL DISTRIBUTION WIDTH 13.5 % (11.6-13.7); WHITE BLOOD COUNT (AUTO) 9.4 K/uL (4.8-10.8)
[2018-03-08 06:50] LABS: ANION GAP 12.2 (8-16); CARBON DIOXIDE 25.1 mmol/L (21-32); CHLORIDE 108 mmol/L (98-107); GLUCOSE 131 mg/dL (74-106); POTASSIUM 3.3 mmol/L (3.5-5.1); SODIUM SERUM 142 mmol/L (136-145); UREA NITROGEN, BLOOD 31 mg/dL (7-18)
[2018-03-08 07:05] LABS: APPEARANCE,URINE CLEAR (CLEAR); BILIRUBIN,URINE NEGATIVE (NEGATIVE); BLOOD, URINE NEGATIVE (NEGATIVE); COLOR,URINE YELLOW (YELLOW); LEUKOCYTE ESTERASE ,URINE NEGATIVE (NEGATIVE); NITRITE, URINE NEGATIVE (NEGATIVE); UGLUCOSE NEGATIVE (NEGATIVE)
--- NOTE | 2018-03-08 07:05 | NUR ---
PATIENT REPORT GIVEN TO MORNING NURSE AT BEDSIDE FOR CONTINUITY OF CARE. PATIENT IS IN STABLE CONDITION
[2018-03-08 07:12] LABS: MAGNESIUM 1.6 mg/dL (1.8-2.4); PHOSPHORUS 2.6 mg/dL (2.5-4.9)
--- NOTE | 2018-03-08 07:30 | NUR ---
RECEIVED PT REPORT FROM MEDICAL SUPERVISOR NURSE AT BEDSIDE. PT IS AWAKE AND ALERT, OX1. HX DEMENTIA. NO S/S OF DISTRESS NOTED. NO C/O PAIN AT THIS TIME. IV SITE NOTED ON LEFT FOREARM, PATENT AND INTACT, IV FLUID INFUSING WELL. RIGHT HIP SCAR NOTED. LEFT HIP INCISION WITH MARTHA, OTHERWISE SKIN IS INTACT. BED IN LOWEST POSITION, SIDE RAILS UP AND CALL LIGHT WITHIN REACH. WILL CONTINUE TO MONITOR
[2018-03-08] MEDS ORDERED: MAG SULF 2000 MG/WATER PREMIX 50 ML IV ONE (08:55)
[2018-03-08] MEDS: METOPROLOL SUCCINATE 50 MG TABER PO SCH (08:58)
[2018-03-08] MEDS: PANTOPRAZOLE 40 MG INJ VIAL IVP SCH (08:58)
[2018-03-08] MEDS: SENNA 8.6 MG TAB PO SCH (08:58)
[2018-03-08] MEDS: LACTULOSE 20 GM/30 ML UDC PO SCH (08:58)
[2018-03-08] MEDS ORDERED: FERROUS SULFATE 325 MG TABEC PO SCH (09:00)
[2018-03-08] MEDS: DEXT 5% /NACL 0.9% 1,000 ML IV SCH ×2 (09:03→17:31)
[2018-03-08] MEDS: MIDAZOLAM 2 MG/2 ML VIAL ONE ×2 (09:34→12:05)
[2018-03-08] MEDS: fentaNYL 0.05 MG/ML VIAL ONE ×2 (09:34→12:05)
[2018-03-08] MEDS ORDERED: diphenhydrAMINE 50 MG/ML VIAL ONE (09:34)
--- NOTE | 2018-03-08 10:00 | NUR ---
PT WALKED WITH PHYSICAL THERAPY. PT HAD A BM. BLACK TARRY PASTY STOOL.
[2018-03-08] MEDS: MAGNESIUM SULFATE 1GM in DEXTROSE 5% 100 ML PREMIX IV SCH ×2 (10:32→13:37)
--- NOTE | 2018-03-08 11:00 | NUR ---
PT HAS BEEN TAKEN TO RADIOLOGY FOR ABD/PELVIS CT WITH CONTRAST. NEW IV ON RIGHT AC. 20G.
--- NOTE | 2018-03-08 11:15 | NUR ---
OR NURSE IS HERE, SHE WILL TAKE THE PT DIRECTLY FROM RADIOLOGY TO OR FOR EGD.
--- NOTE | 2018-03-08 12:35 | NUR ---
PT IS BACK TO UNIT. VITALS TAKEN, WITHIN NORMAL. BLOOD GLUCOSE 128.
[2018-03-08] MEDS ORDERED: POTASSIUM CHLORIDE 40 MEQ, LIDOCAINE 1% 25 MG in NACL 0.9% 250 ML IV SCH (13:00)
--- NOTE | 2018-03-08 13:40 | NUR ---
PT HAD A BM, LIQUIDITY BROWN STOOL.
--- NOTE | 2018-03-08 14:59 | NUR ---
PHYSICAL THERAPY CO-SIGN The Physical Therapy Progress Notes documented by Adoption Services Manager have been reviewed. I CONCUR W/NUTS AND BOLTS ASSEMBLER NOTE; Pt DEMO IMPROVEMENT IN MOBILITY, CONT PER TX PLAN Reviewed/Co-Signed by: Marielena Carr, PT Documentation Done by: NIVIA MOREIRA PTA Addendum: 03/08/18 at 1500 by Marielena Carr PT Amended: Links added.
--- NOTE | 2018-03-08 17:12 | NUR ---
PT REQUESTING SLEEPING PILL. SPOKE WITH LAVON FRANCOIS TO GIVE SEROQUEL AT THIS TIME.
[2018-03-08] MEDS: HYDROcodone/APAP 5/325 MG 1 TAB TAB PO PRN (17:14)
[2018-03-08] MEDS: QUEtiapine FUMARATE 25 MG TAB PO SCH (17:14)
--- NOTE | 2018-03-08 17:19 | NUR ---
Computer Instructor Note: I faxed patient's clinical information to [facility], phone number , including microbiology results. Per Court from [facility] patient may go to room 29A at their facility tomorrow, accepting physician is , she stated patient can be transfer to their facility anytime tomorrow. I called and spoke with patient's son Hermilo , informed him plan is to transfer patient to [facility] tomorrow, he verbalized understanding. He stated he is able to transport patient to [facility], charge nurse Susie made aware. Hermilo requested to speak with MD and obtain update on patient's medical condition, I informed of Hermilo's request. Per Dr. Olsen, he will call Hermilo.
--- NOTE | 2018-03-08 19:20 | NUR ---
RECEIVED PT FROM DAY SHIFT NURSE MALIHA, INTRODUCED SELF, UPDATED BOARD, BEDSIDE REPORT GIVEN, PT STABLE AT THIS TI,E, ABLE TO FOLLOW SIMPLE COMMANDS, PT ON RA, V/S TAKEN NO ABNORMALITIES NOTED, PT ATTEMPTED TO PULL ON RIGHT IV, COVERED BOTH IVS WITH GAUZE TO PREVENT ACCIDENTAL REMOVAL, RIGHT AC IV 20G D5W RUNNING AT 80 ML/HR PATENT AND WITHOUT REDNESS, IV IN LEFT FA 22G SL, PATENT AND NO SIGNS OF REDNESS. BED IN LOWEST POSITION, CALL LIGHT WITHIN REACH. Addendum: 03/08/18 at 2333 by Shanell Bright RN RIGHT AC IV AT 10ML TKO.
--- NOTE | 2018-03-08 19:20 | NUR ---
ENDORSED PT TO EMT/DISPATCHER RN. PT IS IN STABLE CONDITION.
--- NOTE | 2018-03-08 20:00 | NUR ---
ERROR ON V/S DOCUMENTATION, NO REPORT OF PAIN BY PT.
--- NOTE | 2018-03-08 21:06 | NUR ---
TALKED WITH DR HORAN ABOUT PT HAVING ANXIETY AND TRYING TO PULL OUT IV, ALSO REPORTED THAT PT HAS HAD SEVERAL BM AND ASKED TO SEE TO HOLD LACTULOSE AND SENNA. Addendum: 03/08/18 at 2110 by Shanell Bright RN STATED OKAY TO HOLD LACTULOSE AND SENNA, AND WILL PUT IN MEDICATION FOR ANXIETY, WILL CONTINUE WITH DAYO CAN
[2018-03-08] MEDS ORDERED: LORazepam 2 MG/ML VIAL IVP SCH (22:00)
--- NOTE | 2018-03-08 22:00 | NUR ---
PT SLEEPING AT THIS TIME, WILL GIVE ATIVAN PER MD ORDER ONCE PARAMETERS ARE MET.
--- NOTE | 2018-03-08 23:30 | NUR ---
PT RESTING IN BED, V/S TAKEN, NO ABNORMALITIES FROM BASELINE, CALL LIGHT WITHIN REACH, WILL CONTINUE TO MONITOR.
--- NOTE | 2018-03-09 00:17 | NUR ---
PT AGITATED, PULLED OFF TELE MONITOR, GAVE ATIVAN PER MD ORDER, WILL CONTINUE TO MONITOR, BED IN LOWEST POSITION, WILL CONTINUE TO MONITOR.
[2018-03-09] MEDS: HYDROcodone/APAP 5/325 MG 1 TAB TAB PO PRN (01:14)
--- NOTE | 2018-03-09 01:17 | NUR ---
PT HAS FACIAL GRIMACING, PLACED NORCO IN MOUTH PT SPIT IT OUT, WILL CONSULT WITH DR HORAN FOR CHANGE IN MEDIATION. Addendum: 03/09/18 at 0118 by Shanell Bright RN WILL WASTE NORCO IN APPROPRIATE CONTAINER.
[2018-03-09] MEDS ORDERED: HALOPERIDOL IM 5 MG/ML VIAL IM SCH (02:00)
[2018-03-09] MEDS: MORPHINE SULFATE 2 MG/ML SYR IVP PRN ×2 (02:08→10:08)
--- NOTE | 2018-03-09 02:08 | NUR ---
PT HAD FACIAL GRIMACE, HOLDING HIS L LEG UP, DIFFICULT TO CONTROL, FLACC 9, PAIN MEDICATION ADMINISTERED, PT TOLERATED WELL, NO DISTRESS NOTED, CALL LIGHT WITHIN REACH, WILL CONTINUE TO MONITOR.
--- NOTE | 2018-03-09 02:45 | NUR ---
NOTIFIED DR. HORAN REGARDING PT MAG LEVEL 1.6 AND MAG RIDER WAS NOT GIVEN AND D/C'ED, STATED UNDERSTANDING, AND STATED THAT WE WILL WAIT FOR THE AM BLOOD DRAW TO SEE IF PT STILL NEEDS MAGNESIUM REPLACEMENT.
[2018-03-09 04:00] VITALS: BP 141/99
--- NOTE | 2018-03-09 04:00 | NUR ---
V/S TAKEN, ALL WITHIN NORMAL LIMITS, CALL LIGHT WITHIN REACH, WILL CONTINUE TO MONITOR.
[2018-03-09] MEDS: BLOOD GLUCOSE MONITORING 1 DEV DEV FS SCH ×2 (06:11→11:42)
[2018-03-09 06:32] LABS: BASOPHILS % (AUTO) 0.2 % (0.0-2.0); EOSINOPHILS # (AUTO) 0.2 K/uL (0-0.4); EOSINOPHILS % (AUTO) 2.4 % (0.0-4.0); HEMATOCRIT 29.3 % (36-52); HEMOGLOBIN 9.8 g/dL (12.0-18.0); LYMPHOCYTES # (AUTO) 0.8 K/uL (2.0-11.5); LYMPHOCYTES % (AUTO) 8.4 % (20.5-51.1); MEAN CORPUSCULAR HEMOGLOBIN 33 pg (27-31); MEAN CORPUSCULAR HGB CONC 33 g/dL (33-37); MEAN CORPUSCULAR VOLUME 99.5 fL (80-94); MONOCYTES # (AUTO) 0.5 K/uL (0.8-1.0); MONOCYTES % (AUTO) 5.9 % (1.7-9.3); NEUTROPHILS # (AUTO) 7.5 K/uL (1.8-7.7); NEUTROPHILS % (AUTO) 83.1 % (42.2-75.2); PLATELET COUNT (AUTO) 192 K/uL (140-450); RED BLOOD CELL COUNT(AUTO) 2.95 MIL/uL (4.20-6.10); RED CELL DISTRIBUTION WIDTH 13.9 % (11.6-13.7)
--- NOTE | 2018-03-09 06:39 | NUR ---
PT RESTING IN BED, WILL CONTINUE FREQ CHECKS, CALL LIGHT WITHIN REACH.
[2018-03-09 07:02] LABS: ANION GAP 13.4 (8-16); CARBON DIOXIDE 23.6 mmol/L (21-32); CHLORIDE 106 mmol/L (98-107); GLUCOSE 148 mg/dL (74-106); SODIUM SERUM 139 mmol/L (136-145); UREA NITROGEN, BLOOD 14 mg/dL (7-18)
[2018-03-09 07:07] LABS: MAGNESIUM 1.6 mg/dL (1.8-2.4); PHOSPHORUS 2.2 mg/dL (2.5-4.9)
--- NOTE | 2018-03-09 07:36 | NUR ---
ENDORSED PT TO DAY SHIFT NURSE LYNETTE MUSA STABLE AT THIS TIME.
--- NOTE | 2018-03-09 07:37 | NUR ---
RECEIVED REPORT FROM SHIP CLEANER RN. PATIENT IS AWAKE AND ALERT, ORIENTED X2. NO SIGNS AND SYMPTOMS OF ACUTE DISTRESS NOTED AT THIS TIME. HAS RIGHT AC 20G, SALINE LOCK, HAS LEFT FA 22G SALINE LOCK. SITES ARE CLEAN, DRY, PATENT AND INTACT. DISCUSSED PLAN OF CARE WITH PATIENT, REINFORCEMENT NEEDED. BED IN LOWEST POSITION, SIDE RAILS UP X3, CALL LIGHT WITHIN REACH. WILL CONTINUE TO MONITOR.
[2018-03-09 08:00] VITALS: BP 160/91
[2018-03-09] MEDS: METOPROLOL SUCCINATE 50 MG TABER PO SCH (09:51)
[2018-03-09] MEDS: PANTOPRAZOLE 40 MG INJ VIAL IVP SCH (09:52)
[2018-03-09 12:00] VITALS: BP 144/92
[2018-03-09] MEDS ORDERED: MAG SULF 2000 MG/WATER PREMIX 50 ML IV ONE (12:00)
[2018-03-09] MEDS ORDERED: SUCR1TAB35 PO (12:26)
[2018-03-09] MEDS ORDERED: PANT40EC PO (12:26)
[2018-03-09] MEDS ORDERED: SODIUM PHOS / POTASSIUM PHOS 1 PKT PDR PO SCH (13:00)
[2018-03-09] MEDS ORDERED: MAGNESIUM SULFATE 1GM in DEXTROSE 5% 100 ML PREMIX IV SCH (13:00)
--- NOTE | 2018-03-09 13:30 | NUR ---
DISCHARGE ORDER IS IN PLACE. PATIENT GOING BACK TO [facility]. SON IS HERE TO TRANSFER PATIENT TO FACILITY VIA WHEELCHAIR. DISCUSSED INSTRUCTIONS WITH PATIENTS SON. INFORMED HIM THERE IS A PRESCRIPTION. HE VERBALIZED UNDERSTANDING. REMOVED IV SITES FROM PATIENT. CATHETERS INTACT. NO SIGNS AND SYMPTOMS OF ACUTE DISTRESS NOTED AT THIS TIME. ALL BELONGINGS WITH PATIENT. ID BANDS REMOVED. ASSISTED PATIENT INTO WHEELCHAIR.
[2018-03-09] MEDS ORDERED: QUEtiapine FUMARATE 25 MG TAB PO SCH (21:00)
== END 2018-03-09 13:30 | DRG 377 ==
LOC: MED 10:39 → MTU 13:06
PROVIDERS: ADMIT General Practice; ATTEND General Practice
PROC: 0DB68ZX Excision of Stomach, Via Natural or Artificial Opening Endoscopic, Diagnostic (ICD-10-PCS; principal; 2018-03-06)
DX: K25.4 Chronic or unspecified gastric ulcer with hemorrhage (principal); N17.0 Acute kidney failure with tubular necrosis; E44.0 Moderate protein-calorie malnutrition; K72.90 Hepatic failure, unspecified without coma; E87.6 Hypokalemia; E83.42 Hypomagnesemia; E11.9 Type 2 diabetes mellitus without complications; K21.9 Gastro-esophageal reflux disease without esophagitis; I10 Essential (primary) hypertension; E87.5 Hyperkalemia; G30.9 Alzheimer's disease, unspecified; F02.80 Dementia in other diseases classified elsewhere, unspecified severity, without behavioral disturbance, psychotic disturbance, mood disturbance, and anxiety; E83.39 Other disorders of phosphorus metabolism; N28.1 Cyst of kidney, acquired; R74.0 Nonspecific elevation of levels of transaminase and lactic acid dehydrogenase [LDH]; I71.4 Abdominal aortic aneurysm, without rupture; M47.896 Other spondylosis, lumbar region; Z86.73 Personal history of transient ischemic attack (TIA), and cerebral infarction without residual deficits; Z68.27 Body mass index [BMI] 27.0-27.9, adult
CPT/HCPCS: 36415; 71045; 72170; 76700; 80048; 80053; 81003; 82140; 82272; 82948; 83036; 83540; 83690; 83735; 83880; 84100; 84436; 84443; 84479; 85025; 85045; 85610; 85730; 86677; 87081; 93005; 96374; 96375; 97110; 97116; 97140; 97530; 97535; 99285; C9113; J1200; J1630; J1815; J2001; J2060; J2250; J2270; J2405; J3010; J3480; J7030; J7042; Q0092; Q9967

== ENCOUNTER 2020-11-12 12:04 | Emergency (ER) | payer OTHER, MEDICAID ==
[~2020-11-12] VITALS: Ht 167.6 cm; Wt 54.4 kg
[2020-11-12 12:04] VITALS: BP 138/75
[~2020-11-12 12:04] MED LIST changes: -ACET-1182 PO; -ACET-2869 PO; -HUMSLIDE SUBQ; +HYDR-5122 PO; +IRBE300T26 PO; -IRBE300T56 PO; -METF500T PO; +PANT40EC PO; +SLIDE SUBQ; +SUCR1TAB35 PO; +ZOLP10TA1 PO
[2020-11-12 12:31] LABS: BASOPHILS % (AUTO) 0.3 % (0.0-2.0); EOSINOPHILS # (AUTO) 0.1 K/uL (0-0.4); EOSINOPHILS % (AUTO) 1.3 % (0.0-4.0); HEMATOCRIT 31.1 % (36-52); HEMOGLOBIN 10.5 g/dL (12.0-18.0); LYMPHOCYTES # (AUTO) 0.7 K/uL (2.0-11.5); LYMPHOCYTES % (AUTO) 10.4 % (20.5-51.1); MEAN CORPUSCULAR HEMOGLOBIN 34 pg (27-31); MEAN CORPUSCULAR HGB CONC 34 g/dL (33-37); MEAN CORPUSCULAR VOLUME 99.5 fL (80-94); MONOCYTES # (AUTO) 0.4 K/uL (0.8-1.0); MONOCYTES % (AUTO) 6.3 % (1.7-9.3); NEUTROPHILS # (AUTO) 5.4 K/uL (1.8-7.7); NEUTROPHILS % (AUTO) 81.7 % (42.2-75.2); PLATELET COUNT (AUTO) 222 K/uL (140-450); RED BLOOD CELL COUNT(AUTO) 3.12 MIL/uL (4.20-6.10); RED CELL DISTRIBUTION WIDTH 12.7 % (11.6-13.7); WHITE BLOOD COUNT (AUTO) 6.6 K/uL (4.8-10.8)
[2020-11-12] MEDS ORDERED: LOV40I SUBQ (12:31)
[2020-11-12] MEDS ORDERED: ASPI-1822 PO (12:31)
[2020-11-12] MEDS ORDERED: ESOM40EC PO (12:31)
[2020-11-12] MEDS ORDERED: QUET50TA PO (12:31)
[2020-11-12] MEDS ORDERED: [UNRECOGNIZED DRUG - CODE] PO (12:31)
[2020-11-12] MEDS ORDERED: METF1TAB1 PO (12:31)
[2020-11-12 12:45] LABS: ALBUMIN 2.4 g/dL (3.4-5.0); ANION GAP 11.6 (8-16); ASPARTATE AMINOTRANSFERASE 23 U/L (15-37); CARBON DIOXIDE 27.8 mmol/L (21-32); CHLORIDE 103 mmol/L (98-107); CREATININE 1.1 mg/dL (0.6-1.3); GLUCOSE 180 mg/dL (74-106); POTASSIUM 4.4 mmol/L (3.5-5.1); SODIUM SERUM 138 mmol/L (136-145); TOTAL BILIRUBIN 1.1 mg/dL (0.0-1.0); UREA NITROGEN, BLOOD 17 mg/dL (7-18)
[2020-11-12 12:46] LABS: ACETAMINOPHEN < 0.5 ug/ml (10-30); SALICYLATE < 2.8 mg/dL (2.8-20.0)
[2020-11-12] MEDS ORDERED: traMADol 50 MG TAB PO ONE (12:50)
[2020-11-12] MEDS ORDERED: fentaNYL citrate 0.05 MG/ML VIAL IVP ONE (15:20)
[2020-11-12] MEDS ORDERED: NACL 0.9% 500 ML IV ONE (15:35)
[2020-11-12] MEDS ORDERED: QUEtiapine FUMARATE 25 MG TAB PO SCH (17:30)
[2020-11-12 19:20] VITALS: BP 141/86
== END 2020-11-12 19:20 ==
LOC: MED 12:04
DX: R45.851 Suicidal ideations (principal); I10 Essential (primary) hypertension; K21.9 Gastro-esophageal reflux disease without esophagitis; Z87.81 Personal history of (healed) traumatic fracture; Z79.899 Other long term (current) drug therapy; Z20.822 Contact with and (suspected) exposure to COVID-19
CPT/HCPCS: 80053; 85025; 87426; 93005; 96360; 99285; G0480; G0482; J7030; U0003; J3010

== ENCOUNTER 2021-01-30 19:54 | Inpatient (IN) | payer OTHER, MEDICAID ==
[~2021-01-30] VITALS: Ht 170.2 cm; Wt 68.5 kg
[~2021-01-30 19:54] MED LIST changes: -ACET-9529 PO; +ASPI-1822 PO; -ATA25 PO; -BISA-213 RC; -D50SYR IVP; -DOCU-299 PO; -GLUC-805 FS; -HEPA500056 SUBQ; -IRBE300T26 PO; +LOV40I SUBQ; +METF1TAB1 PO; -PANT40EC PO; -QUET25TA PO; +QUET50TA PO; -SENN-3 PO; -SITA50TA3 PO; -SLIDE SUBQ; -SUCR1TAB35 PO; -ZOLP10TA1 PO; +[UNRECOGNIZED DRUG - CODE] PO
[2021-01-30 20:08] VITALS: BP 122/87
--- NOTE | 2021-01-30 20:37 | NUR ---
85 Y/O MALE BIB [facility] C/O ABDOMINAL PAIN AND COFFEE GROUND EMESIS X 1 TODAY. PT IS SAMI SPEAKING ONLY AND WAS JUST GUARDING ABDOMINAL AREA. A&OX4, GCS 15. PT'S PAIN LEVEL IS UNABLE TO OBTAIN. PT WAS PUT ON O2 BECAUSE PT WAS COMPLAINING OF HARD TIME TO BREATHE. NKA PMH: DIABETES, HTN, GERD, PSYCHOSIS, LEFT FEMUR FRACTURE
[2021-01-30] MEDS ORDERED: NACL 0.9% 1,000 ML IV SCH ×2 (20:40→23:20)
[2021-01-30] MEDS ORDERED: ONDANSETRON 4 MG/2 ML VIAL IVP ONE (20:40)
[2021-01-30] MEDS ORDERED: PANTOPRAZOLE 40 MG INJ VIAL IVP ONE (20:45)
--- NOTE | 2021-01-30 21:18 | NUR ---
OBTAINED CONSENT FROM CT SCAN OF THE ABDOMEN AND PELVIC WITH SON THROUGH TELEPHONE WITH ANOTHER RN: TRIPP GONZALES
--- NOTE | 2021-01-30 21:19 | NUR ---
RECEIVED CALL FROM LAB, TALKED TO CARLA AWAD REGRDING CRITICAL LAB VALUE: 3.9 LACTIC ACID
[2021-01-30 21:28] LABS: HEMOGLOBIN 16.1 g/dL (12.0-18.0); MEAN CORPUSCULAR VOLUME 96.6 fL (80-94)
[2021-01-30 21:30] LABS: PROTHROMBIN TIME 10.9 secs (10.8-13.4)
[2021-01-30 21:32] LABS: HEMATOCRIT 48.6 % (36-52); MEAN CORPUSCULAR HEMOGLOBIN 32 pg (27-31); MEAN CORPUSCULAR HGB CONC 33 g/dL (33-37); PLATELET COUNT (AUTO) 207 K/uL (140-450); RED BLOOD CELL COUNT(AUTO) 5.03 MIL/uL (4.20-6.10); RED CELL DISTRIBUTION WIDTH 13.4 % (11.6-13.7); WHITE BLOOD COUNT (AUTO) 17.3 K/uL (4.8-10.8)
[2021-01-30 21:36] LABS: AMYLASE 130 U/L (25-115); ANION GAP 15.9 (8-16); ASPARTATE AMINOTRANSFERASE 22 U/L (15-37); CARBON DIOXIDE 25.1 mmol/L (21-32); CHLORIDE 100 mmol/L (98-107); CREATININE 1.6 mg/dL (0.6-1.3); GLUCOSE 189 mg/dL (74-106); LIPASE 131 U/L (73-393); SODIUM SERUM 136 mmol/L (136-145); TOTAL BILIRUBIN 0.8 mg/dL (0.0-1.0); UREA NITROGEN, BLOOD 39 mg/dL (7-18)
[2021-01-30 21:54] LABS: LYMPHOCYTES % (MANUAL) 7 % (20-46); MONOCYTES % (MANUAL) 9 % (5-12)
[2021-01-30 21:55] LABS: EOSINOPHILS % (MANUAL) 1 % (0-4)
--- NOTE | 2021-01-30 23:36 | NUR ---
PT TAKEN IN CT VIA PEPITO
[2021-01-30] MEDS ORDERED: cefTRIAXone 1,000 MG VIAL ONE (23:38)
[2021-01-31 00:32] LABS: APPEARANCE,URINE SL CLOUDY (CLEAR); BILIRUBIN,URINE NEGATIVE (NEGATIVE); BLOOD, URINE TRACE-I (NEGATIVE); COLOR,URINE DARK YELLOW (YELLOW); LEUKOCYTE ESTERASE ,URINE NEGATIVE (NEGATIVE); NITRITE, URINE NEGATIVE (NEGATIVE); PH,URINE 5.5 (5.0-9.0); UGLUCOSE NEGATIVE (NEGATIVE)
[2021-01-31 00:41] LABS: WBC,URINE 0-5 /HPF (0-5)
[2021-01-31] MEDS ORDERED: metroNIDAZOLE 500 MG/NS PREMIX 100 ML IV ONE (01:05)
[2021-01-31] MEDS ORDERED: MORPHINE SULFATE 4 MG/ML SYR IVP ONE (01:05)
[2021-01-31] MEDS ORDERED: DEXT 5% / NACL 0.45% 1,000 ML IV ONE (01:10)
--- NOTE | 2021-01-31 01:50 | NUR ---
THIS RN WENT TO ADMINISTERED FLAGYL IVPB AND NOTICED BOTH IV LINES WERE DISCONTINUED. AT THIS TIME INSERTION OF 24G IV PLACED TO LT HAND.
[2021-01-31] MEDS ORDERED: MORPHINE SULFATE 2 MG/ML SYR IVP PRN (03:35)
[2021-01-31] MEDS ORDERED: HYDROcodone/APAP 7.5/325 MG 1 TAB PO PRN (03:35)
--- NOTE | 2021-01-31 04:30 | NUR ---
PT ARRIVED TO UNIT. ON TELE. AWAKE ALERT CONFUSED ON ROOM AIR. NO S/S RESPIRATORY DISTRESS. NG TUBE IN PLACE. IV SITE TO L HAND PATENT INTACT. HAS JORDYN SOFT WRIST RESTRAINTS. NO SIGNS OF INJURIES, CIRCULATION WELL. SKIN WARM DRY INTACT. HAS BRUISES TO JORDYN UPPER ARMS. LUNGS CLEAR. BOWELS ACTIVE . ORIENTED TO ROOM AND HOSPITAL. SAFETY MEASURES IN PLACE. CALL LIGHT WITHIN REACH. WILL CONTINUE TO MONITOR. OBTAINED MRSA AND VITAL SIGNS. TWAN NEGATIVE. DX: AORTIC ANEURYSM, SBO. HX: DEMENTIA, HTN, GERD, DM, PSYCHOSIS, L FEMUR FX. FROM [facility]
[2021-01-31] MEDS: NACL 0.9% 1,000 ML IV SCH ×3 (04:53→20:15)
--- NOTE | 2021-01-31 04:55 | NUR ---
Patient will be admitted to care of DR. JAMISON. Admited to TELEMMETRY. Will go to room 121A. Belongings list completed. Report to TRIPP GERARD.
[2021-01-31] MEDS: metroNIDAZOLE 500 MG/NS PREMIX 100 ML IV SCH ×3 (04:58→20:24)
--- NOTE | 2021-01-31 05:01 | NUR ---
DUE IVF AND IV FLAGYL GIVEN ORDERED. EDUCATION PROVIDED. NO DISTRESS NOTED. CALL LIGHT WITHIN REACH. WILL CONTINUE TO MONITOR
--- NOTE | 2021-01-31 06:30 | NUR ---
PATIENT PULLED OUT NG TUBE. REINSERTED NEW NG TUBE TO LOW INTERMITTENT SUCTION PER MD ORDER. TOLERATED WELL. 350 ML OUT FROM SUCTION. PATIENT IN NO DISTRESS. WILL CONTINUE TO MONITOR
--- NOTE | 2021-01-31 07:30 | NUR ---
RECEIVED REPORT FROM SPECIAL WEAPONS AND TACTICS OFFICER NURSE, CHAITANYA ALMAGUER, FOR CONTINUITY OF CARE. ALERT AND ORIENTED WITH PERIODIC CONFUSION, RESTING IN BED. SR ON MONITOR. ON ROOM AIR. NOTHING BY MOUTH EXCEPT MEDICATION. NG TUBE IN RIGHT NOSTRIL CONNECTED TO INTERMITTENT WALL SUCTION, 350 ML REMOVED OF REPORT. BILATERAL SOFT WRIST RESTRAINTS ON, NO SIGNS OF INJURY OR CIRCULATION DAMAGE. IV CLEAN, DRY, AND INTACT, ON LEFT HAND 24G SALINE LOCKED. PATIENT SHOW NO SIGNS OF DISTRESS OR PAIN. RADIO INTERFERENCE TROUBLE SHOOTER, PULSE OXIMETER, AND SAFETY MEASURES IN PLACE. BED IN LOW POSITION AND LOCKED. WILL CONTINUE TO MONITOR.
--- NOTE | 2021-01-31 07:40 | NUR ---
ENDORSED PATIENT TO DAY RN FOR CONTINUITY OF CARE. PATIENT IS IN STABLE CONDITION
[2021-01-31 08:00] VITALS: BP 128/80
--- NOTE | 2021-01-31 09:16 | NUR ---
PATIENT HAS BEEN SCREENED AND CATEGORIZED HIGH NUTRITION RISK. PATIENT WILL BE SEEN WITHIN 1-2 DAYS OF ADMISSION. 01/31/21-02/01/21 RECEIVED FNS REFERRAL FOR VOMITING >[address]
--- NOTE | 2021-01-31 10:00 | NUR ---
ADMINISTERED SCHEDULED AM MEDICATION. WILL CONTINUE TO MONITOR.
[2021-01-31 12:00] VITALS: BP 135/74
[2021-01-31] MEDS ORDERED: POTASSIUM CHLORIDE 10 MEQ TABER PO PRN (12:00)
[2021-01-31] MEDS ORDERED: ONDANSETRON 4 MG/2 ML VIAL IM/IVP PRN (12:00)
[2021-01-31] MEDS ORDERED: HYDROcodone/APAP 5/325 MG 1 TAB TAB PO PRN (12:00)
[2021-01-31] MEDS ORDERED: ACETAMINOPHEN 325 MG TAB PO PRN (12:00)
[2021-01-31] MEDS ORDERED: ZOLPIDEM 5 MG TAB PO PRN (12:00)
[2021-01-31] MEDS ORDERED: MAG SULF 2000 MG/WATER PREMIX 50 ML IV PRN (12:00)
[2021-01-31] MEDS ORDERED: DEXTROSE 50% 50 ML SYR IVP PRN (12:10)
[2021-01-31] MEDS ORDERED: INSULIN LISPRO SLIDING SCALE 100 UNITS/ML VIAL SUBQ PRN (12:10)
[2021-01-31] MEDS ORDERED: DOCUSATE 100 MG/10 ML UDC PO PRN (12:15)
[2021-01-31 12:42] LABS: BASOPHILS % (AUTO) 0.3 % (0.0-2.0); EOSINOPHILS # (AUTO) 0.1 K/uL (0-0.4); EOSINOPHILS % (AUTO) 0.9 % (0.0-4.0); HEMATOCRIT 40.7 % (36-52); HEMOGLOBIN 13.4 g/dL (12.0-18.0); LYMPHOCYTES # (AUTO) 1.2 K/uL (2.0-11.5); LYMPHOCYTES % (AUTO) 18.1 % (20.5-51.1); MEAN CORPUSCULAR HEMOGLOBIN 32 pg (27-31); MEAN CORPUSCULAR HGB CONC 33 g/dL (33-37); MEAN CORPUSCULAR VOLUME 96.4 fL (80-94); MONOCYTES # (AUTO) 0.6 K/uL (0.8-1.0); MONOCYTES % (AUTO) 9.1 % (1.7-9.3); NEUTROPHILS # (AUTO) 4.6 K/uL (1.8-7.7); NEUTROPHILS % (AUTO) 71.6 % (42.2-75.2); PLATELET COUNT (AUTO) 143 K/uL (140-450); RED BLOOD CELL COUNT(AUTO) 4.22 MIL/uL (4.20-6.10); RED CELL DISTRIBUTION WIDTH 13.1 % (11.6-13.7); WHITE BLOOD COUNT (AUTO) 6.5 K/uL (4.8-10.8)
--- NOTE | 2021-01-31 13:05 | NUR ---
DR. YAQUELIN MAYERS. UPDATED ON PATIENT STATUS AND CONDITION. WILL CONTINUE TO MONITOR.
[2021-01-31 13:14] LABS: ANION GAP 12.8 (8-16); CARBON DIOXIDE 23.9 mmol/L (21-32); CHLORIDE 106 mmol/L (98-107); CREATININE 1.4 mg/dL (0.6-1.3); GLUCOSE 135 mg/dL (74-106); POTASSIUM 4.7 mmol/L (3.5-5.1); SODIUM SERUM 138 mmol/L (136-145); UREA NITROGEN, BLOOD 41 mg/dL (7-18)
[2021-01-31 13:26] LABS: MAGNESIUM 1.7 mg/dL (1.8-2.4); PHOSPHORUS 3.2 mg/dL (2.5-4.9); THYROID STIMULATING HORMONE 0.27 uIU/mL (0.34-3.74)
--- NOTE | 2021-01-31 14:34 | NUR ---
PT. WITH LOW JUAN SCALE AT RISK, CONTINUE TO FOLLOW PRESSURE INJURY PREVENTION INTERVENTIONS. -TURN AND REPOSITION PATIENT Q 2H -ASSESS AND MONITOR SKIN CONDITION DURING POSITION CHANGE -OFFLOAD BILATERAL HEELS BY PLACING PILLOWS UNDER CALVES AT ALL TIMES, UNLESS OTHERWISE CONTRAINDICATED -PRESSURE REDISTRIBUTION BY PLACING PILLOWS AND OFFLOADING SACRALCOCCYX -KEEP SKIN CLEAN AND DRY AT ALL TIMES.
--- NOTE | 2021-01-31 15:19 | NUR ---
01/31/21 RD INITIAL ASSESSMENT COMPLETED PLEASE REFER TO NUTRITION ASSESSMENT UNDER CARE ACTIVITY FOR ESTIMATED NUTRITIONAL NEEDS. 1. CONTINUE NPO MEDICALLY NECESSARY 2. IF PT WILL BE NPO >3 DAYS CONSIDER TPN 3. RECOMMEND A SWALLOW EVALUATION IF/WHEN PATIENT IS READY FOR PO DIET 4. RD TO FOLLOW-UP 2-3 DAYS, HIGH RISK PATRICIA MORALES, RD
[2021-01-31 16:00] VITALS: BP 121/73
[2021-01-31] MEDS: BLOOD GLUCOSE MONITORING 1 DEV DEV FS SCH ×2 (17:30→20:30)
--- NOTE | 2021-01-31 18:20 | NUR ---
DR. COLE MAYERS UPDATED ON PATIENT STATUS AND CONDITION. AWARE PATIENT HAS NO URINE OUTPUT AND THAT BLADDER SCAN SHOW 0 ML. INFORMED THAT NG TUBE OUTPUT HAS BEEN AROUND 450ML SINCE ADMISSION.
--- NOTE | 2021-01-31 19:10 | NUR ---
ENDORSED CARE TO CAREN LORA RN FOR CONTINUITY OF CARE.
--- NOTE | 2021-01-31 19:20 | NUR ---
RECIEVED BEDSIDE ENDORSMENT FROM DAY SHIFT RN, PT LYING IN BED RESTING, A&0X3, ABLE TO FOLLOW COMMANDS, PT ON ROOM AIR, SR ON MONITOR, NPO EXCEPT FOR MEDS, SKIN WARM DRY AND INTACT, AFEBRILE, LH 24 G INFUSING NS @ 120MLS/HR, PT SHOWING NO SIGNS OF ACUTE DISTRESS, SAFETY MEASURES IN PLACE, WILL CONTINUE WITH CURRENT POC
[2021-01-31 20:00] VITALS: BP 160/108
[2021-01-31] MEDS: QUEtiapine FUMARATE 25 MG TAB PO SCH (20:34)
[2021-01-31] MEDS ORDERED: SITAGLIPTIN PHOS PO SCH (21:00)
[2021-01-31] MEDS ORDERED: METFORMIN HCL PO SCH (21:00)
--- NOTE | 2021-01-31 21:10 | NUR ---
ADMINISTERED 2100H MEDICATIONS PER MD ORDERS, BLOOD GLUCOSE 122
--- NOTE | 2021-01-31 23:25 | NUR ---
PT RESTING AND SHOWING NO SIGNS OF ACUTE DISTRESS
[2021-02-01] VITALS: BP 93/59
[2021-02-01] MEDS: NACL 0.9% 1,000 ML IV SCH ×3 (02:56→21:52)
--- NOTE | 2021-02-01 02:57 | NUR ---
CHANGED THE NS BAG @ 120MLS/HR, PT RESTING AND SHOWING NO SIGNS OF ACUTE DISTRESS
[2021-02-01 04:00] VITALS: BP 130/70
[2021-02-01] MEDS: metroNIDAZOLE 500 MG/NS PREMIX 100 ML IV SCH ×3 (04:06→21:47)
--- NOTE | 2021-02-01 04:44 | NUR ---
ADMINISTERED 0500H MEDICATION PER MD ORDERS, PT RESTING AND SHOWING NO SIGN OF ACUTE DISTRESS
[2021-02-01 05:56] LABS: BASOPHILS % (AUTO) 0.3 % (0.0-2.0); EOSINOPHILS # (AUTO) 0.2 K/uL (0-0.4); EOSINOPHILS % (AUTO) 4.8 % (0.0-4.0); HEMATOCRIT 33.8 % (36-52); HEMOGLOBIN 11.3 g/dL (12.0-18.0); LYMPHOCYTES % (AUTO) 19.8 % (20.5-51.1); MEAN CORPUSCULAR HEMOGLOBIN 32 pg (27-31); MEAN CORPUSCULAR HGB CONC 33 g/dL (33-37); MEAN CORPUSCULAR VOLUME 95.4 fL (80-94); MONOCYTES # (AUTO) 0.5 K/uL (0.8-1.0); MONOCYTES % (AUTO) 9.5 % (1.7-9.3); NEUTROPHILS # (AUTO) 3.2 K/uL (1.8-7.7); NEUTROPHILS % (AUTO) 65.6 % (42.2-75.2); PLATELET COUNT (AUTO) 116 K/uL (140-450); RED BLOOD CELL COUNT(AUTO) 3.55 MIL/uL (4.20-6.10); RED CELL DISTRIBUTION WIDTH 13.5 % (11.6-13.7); WHITE BLOOD COUNT (AUTO) 4.9 K/uL (4.8-10.8)
[2021-02-01 06:12] LABS: ANION GAP 15.4 (8-16); CARBON DIOXIDE 23.6 mmol/L (21-32); CHLORIDE 109 mmol/L (98-107); CREATININE 1.2 mg/dL (0.6-1.3); GLUCOSE 99 mg/dL (74-106); SODIUM SERUM 144 mmol/L (136-145); UREA NITROGEN, BLOOD 34 mg/dL (7-18)
[2021-02-01 06:20] LABS: CHOL/HDL RATIO 2.1 (1-4.5); MAGNESIUM 1.7 mg/dL (1.8-2.4); PHOSPHORUS 2.5 mg/dL (2.5-4.9)
[2021-02-01] MEDS ORDERED: NON-FORMULARY ITEM (Esomeprazole Magnesium* (Nexium*) 40 MG) PO SCH (06:30)
[2021-02-01] MEDS: BLOOD GLUCOSE MONITORING 1 DEV DEV FS SCH ×4 (06:39→21:00)
--- NOTE | 2021-02-01 06:39 | NUR ---
BLOOD GLUCOSE 86. NO SIGNS OF ACUTE DISTRESS
--- NOTE | 2021-02-01 07:24 | NUR ---
ENDORSED TO DAY SHIFT RN FOR CONTINUITY OF CARE
--- NOTE | 2021-02-01 07:28 | NUR ---
RECEIVED REPORT FROM NIGHTSHIFT NURSE. PT RESTING IN BED. ABLE TO MAKE NEEDS KNOWN. RESPIRATIONS EVEN AND UNLABORED WITH NO SOB OR RESPIRATORY DISTRESS. SKIN WARM AND DRY TO TOUCH. IV SITE ON L HAND 24G IS CLEAN, DRY, AND INTACT. SAFETY MEASURES IN PLACE. WILL CONTINUE TO MONITOR
[2021-02-01 08:00] VITALS: BP 153/86
[2021-02-01] MEDS: CHOLECALCIFEROL 1,000 IU TAB PO SCH (08:48)
[2021-02-01] MEDS: PANTOPRAZOLE 40 MG TABEC PO SCH (08:49)
[2021-02-01] MEDS: ASPIRIN 81 MG TAB.CHEW PO SCH (08:49)
[2021-02-01] MEDS: FOLIC ACID 1 MG TAB PO SCH (08:49)
[2021-02-01] MEDS ORDERED: VITAMIN D3 PO SCH (09:00)
[2021-02-01] MEDS ORDERED: MELOXICAM 15 MG PO SCH (09:00)
[2021-02-01] MEDS ORDERED: FOLIC ACID PO SCH (09:00)
--- NOTE | 2021-02-01 09:03 | NUR ---
ADMINISTERED SCHED MED PRESCRIBED PER MD ORDER. PT TOLERATED WELL. NO SIGNS OF DISTRESS. SAFETY MEASURES IN PLACE. WILL CONTINUE TO MONITOR
[2021-02-01 09:07] LABS: T4 (THYROXINE) 7.2 ug/dL (4.5-12.0)
--- NOTE | 2021-02-01 11:30 | NUR ---
PT BLOOD SUGAR IS 112. NO NEED OF INSULIN AT THIS TIME. WILL CONTINUE TO MONITOR
--- NOTE | 2021-02-01 13:20 | NUR ---
REMOVED NG TUBE PER MD ORDER. PT TOLERATED WELL. NO SIGNS OF DISTRESS. WILL CONTINUE TO MONITOR
--- NOTE | 2021-02-01 14:00 | NUR ---
PATIENT NO LONGER IN RESTRAINTS PER MD ORDER. PT TOLERATED WELL. SAFETY MEASURES IN PLACE. WILL CONTINUE TO MONITOR
--- NOTE | 2021-02-01 15:15 | NUR ---
PT HAVING A SNACK. NO SIGNS OF DISTRESS. SAFETY MEASURES IN PLACE. WILL CONTINUE TO MONITOR
[2021-02-01 16:00] VITALS: BP 159/84
--- NOTE | 2021-02-01 16:30 | NUR ---
PT BLOOD SUGAR IS 89. NO INSULIN NEEDED AT THIS TIME. SAFETY MEASURES IN PLACE. WILL CONTINUE TO MONITOR
--- NOTE | 2021-02-01 18:30 | NUR ---
FED PATIENT DINNER. PT TOLERATED WELL. NO SIGNS OF DISTRESS. WILL CONTINUE TO MONITOR
--- NOTE | 2021-02-01 19:10 | NUR ---
ENDORSED TO NIGHTSHIFT AT BEDSIDE FOR CONTINUITY OF CARE. PT IS STABLE
--- NOTE | 2021-02-01 19:11 | NUR ---
RECEIVED REPORT FROM AM NURSE. PT SLEEPING IN NO ACUTE DISTRESS. RESPIRATION EVEN UNLABORED. IVF INFUSING WELL ON THE LEFT HAND. WILL CONTINUE TO MONITOR.
--- NOTE | 2021-02-01 21:47 | NUR ---
ADMINISTERED SCHEDULED MEDS PER MD ORDERED.
[2021-02-01] MEDS: QUEtiapine FUMARATE 25 MG TAB PO SCH (21:51)
[2021-02-02] VITALS: BP 150/91
[2021-02-02] MEDS: metroNIDAZOLE 500 MG/NS PREMIX 100 ML IV SCH ×3 (04:44→20:30)
--- NOTE | 2021-02-02 04:52 | NUR ---
ADMINISTERED DUE MEDS ORDERED BY .
[2021-02-02] MEDS: NACL 0.9% 1,000 ML IV SCH ×2 (05:35→18:37)
[2021-02-02 05:56] LABS: BASOPHILS % (AUTO) 0.3 % (0.0-2.0); EOSINOPHILS # (AUTO) 0.3 K/uL (0-0.4); EOSINOPHILS % (AUTO) 5.9 % (0.0-4.0); HEMATOCRIT 32.9 % (36-52); HEMOGLOBIN 11.1 g/dL (12.0-18.0); LYMPHOCYTES # (AUTO) 1.1 K/uL (2.0-11.5); LYMPHOCYTES % (AUTO) 21.9 % (20.5-51.1); MEAN CORPUSCULAR HEMOGLOBIN 32 pg (27-31); MEAN CORPUSCULAR HGB CONC 34 g/dL (33-37); MEAN CORPUSCULAR VOLUME 95.6 fL (80-94); MONOCYTES # (AUTO) 0.4 K/uL (0.8-1.0); MONOCYTES % (AUTO) 7.4 % (1.7-9.3); NEUTROPHILS # (AUTO) 3.3 K/uL (1.8-7.7); NEUTROPHILS % (AUTO) 64.5 % (42.2-75.2); PLATELET COUNT (AUTO) 117 K/uL (140-450); RED BLOOD CELL COUNT(AUTO) 3.44 MIL/uL (4.20-6.10); RED CELL DISTRIBUTION WIDTH 13.3 % (11.6-13.7); WHITE BLOOD COUNT (AUTO) 5.1 K/uL (4.8-10.8)
[2021-02-02 06:02] LABS: ANION GAP 14.8 (8-16); CARBON DIOXIDE 21.8 mmol/L (21-32); CHLORIDE 109 mmol/L (98-107); GLUCOSE 82 mg/dL (74-106); POTASSIUM 3.6 mmol/L (3.5-5.1); SODIUM SERUM 142 mmol/L (136-145); UREA NITROGEN, BLOOD 20 mg/dL (7-18)
[2021-02-02 06:12] LABS: MAGNESIUM 1.8 mg/dL (1.8-2.4); PHOSPHORUS 1.9 mg/dL (2.5-4.9)
--- NOTE | 2021-02-02 07:30 | NUR ---
ENDORSED TO AM NURSE FOR CONTINUITY OF CARE. PT IS STABLE
--- NOTE | 2021-02-02 07:30 | NUR ---
RECEIVED REPORT FROM ASSEMBLY LINE INSPECTOR RN FOR CONTINUITY OF CARE. PATIENT ASLEEP IN BED IN RIGHT LATERAL POSITION. IV TO ANGELA 22G SALINE LOCK. BREATHING EVEN UNLABORED ON RA. CONTACT ISOLATION FOR PENDING SCABIES TEST. SAFETY MEASURES IN PLACE, CALL LIGHT WITHIN REACH. WILL CONTINUE TO MONITOR. Addendum: 02/02/21 at 0824 by Viviana Bianchi RN WRONG DOCUMENTATION, WRONG PATIENT.
--- NOTE | 2021-02-02 07:30 | NUR ---
RECEIVED REPORT FROM CATTLE BRANDER RN FOR CONTINUITY OF CARE. PATIENT RESTING IN BED IN LEFT LATERAL POSITION. IV TO THE LEFT HAND 24G INFUSING IVF NS@ 120ML/HR. NPO EXCEPT MEDS STATUS. NO ACUTE DISTRESS NOTED. WILL CONTINUE TO MONITOR.
[2021-02-02 08:00] VITALS: BP 162/90
--- NOTE | 2021-02-02 08:11 | NUR ---
INFORMED DR. CARCAMO THAT PATIENT'S PHOSPHATE LEVEL 1.9, WILL WAIT DR. CARCAMO'S ORDER. WILL FOLLOW UP.
[2021-02-02] MEDS: CHOLECALCIFEROL 1,000 IU TAB PO SCH (09:32)
[2021-02-02] MEDS: FOLIC ACID 1 MG TAB PO SCH (09:33)
[2021-02-02] MEDS: ASPIRIN 81 MG TAB.CHEW PO SCH (09:33)
[2021-02-02] MEDS: PANTOPRAZOLE 40 MG TABEC PO SCH (09:33)
[2021-02-02] MEDS: SODIUM PHOS / POTASSIUM PHOS 1 PKT PDR PO SCH ×3 (09:33→18:37)
[2021-02-02] MEDS ORDERED: lisinopriL 20 MG TAB PO SCH (11:30)
[2021-02-02] MEDS: BLOOD GLUCOSE MONITORING 1 DEV DEV FS SCH ×3 (11:55→20:39)
[2021-02-02] MEDS ORDERED: DEXT 5% /NACL 0.9% 1,000 ML IV SCH (12:30)
--- NOTE | 2021-02-02 13:14 | NUR ---
02/02/21 RD FOLLOW UP COMPLETED PLEASE REFER TO NUTRITION ASSESSMENT UNDER CARE ACTIVITY FOR ESTIMATED NUTRITIONAL NEEDS. 1. CONTINUE NPO MEDICALLY NECESSARY 2. IF/WHEN MEDICALLY APPROPRIATE, CONSIDER ADVANCING TO MECHANICAL SOFT CCHO WITH GLUCERNA IF PO INTAKE <75% 3. RD TO FOLLOW-UP 2-3 DAYS, HIGH RISK PATRICIA MORALES, RD
[2021-02-02] MEDS ORDERED: MIDAZOLAM 5 MG/5 ML VIAL ONE (15:19)
[2021-02-02] MEDS ORDERED: fentaNYL citrate 0.05 MG/ML VIAL ONE (15:19)
[2021-02-02 16:00] VITALS: BP 169/94
--- NOTE | 2021-02-02 16:30 | NUR ---
PATIENT HAD 1 BM, PATIENT CLEANED AND TURNED. BREATHING EVEN UNLABORED IN RA. WILL CONTINUE TO MONITOR.
--- NOTE | 2021-02-02 16:33 | NUR ---
PATIENT WAS PICKED UP BY OR NURSE FOR PROCEDURE EGD UNDER DR. MORTON. WILL FOLLOW UP.
[2021-02-02] MEDS ORDERED: fentaNYL citrate 0.05 MG/ML VIAL IVP ONE (17:00)
[2021-02-02] MEDS ORDERED: MIDAZOLAM 2 MG/2 ML VIAL IVP ONE (17:00)
--- NOTE | 2021-02-02 17:20 | NUR ---
PATIENT WAS BROUGHT BACK FROM OR S/SP EGD. V/S CHECKED, PATIENT IN STABLE CONDITION.
--- NOTE | 2021-02-02 19:26 | NUR ---
ENDORSED PATIENT TO COMMERCIAL ENERGY RATER RN FOR CONTINUITY OF CARE. PATIENT IN STABLE CONDITION.
--- NOTE | 2021-02-02 19:27 | NUR ---
RECEIVED REPORT FROM MORNING NURSE. PT RESTING IN BED WATCHING TV. NO DISTRESS. IVF OF NS INFUSING AT 80 ML/HR. DENIES PAIN. SKIN WARM AND DRY TO TOUCH. WILL CONTINUE TO MONITOR.
[2021-02-02] MEDS: QUEtiapine FUMARATE 25 MG TAB PO SCH (20:30)
--- NOTE | 2021-02-02 20:30 | NUR ---
ADMINISTERED DUE MEDS PER MD ORDERED.
[2021-02-03 04:00] VITALS: BP 175/103
--- NOTE | 2021-02-03 04:11 | NUR ---
MADE ROUNDS, PATIENT AWAKE WATCHING TV. DENIES PAIN. AFEBRILE. NEEDS WELL ATTENDED.
[2021-02-03] MEDS: metroNIDAZOLE 500 MG/NS PREMIX 100 ML IV SCH ×3 (04:39→20:17)
--- NOTE | 2021-02-03 04:40 | NUR ---
BP 175/103, NO PRN MEDS. TEXTED DR. CARCAMO FRAME COVERER AWAITING FOR REPLY.
[2021-02-03 06:04] LABS: BASOPHILS % (AUTO) 0.5 % (0.0-2.0); EOSINOPHILS # (AUTO) 0.3 K/uL (0-0.4); HEMATOCRIT 34.3 % (36-52); HEMOGLOBIN 11.7 g/dL (12.0-18.0); LYMPHOCYTES # (AUTO) 0.9 K/uL (2.0-11.5); LYMPHOCYTES % (AUTO) 17.8 % (20.5-51.1); MEAN CORPUSCULAR HEMOGLOBIN 32 pg (27-31); MEAN CORPUSCULAR HGB CONC 34 g/dL (33-37); MEAN CORPUSCULAR VOLUME 94.6 fL (80-94); MONOCYTES # (AUTO) 0.4 K/uL (0.8-1.0); MONOCYTES % (AUTO) 8.5 % (1.7-9.3); NEUTROPHILS # (AUTO) 3.3 K/uL (1.8-7.7); NEUTROPHILS % (AUTO) 67.2 % (42.2-75.2); PLATELET COUNT (AUTO) 132 K/uL (140-450); RED BLOOD CELL COUNT(AUTO) 3.63 MIL/uL (4.20-6.10); RED CELL DISTRIBUTION WIDTH 12.9 % (11.6-13.7)
[2021-02-03 07:02] LABS: ANION GAP 12.4 (8-16); CARBON DIOXIDE 24.2 mmol/L (21-32); CHLORIDE 108 mmol/L (98-107); CREATININE 1.1 mg/dL (0.6-1.3); GLUCOSE 82 mg/dL (74-106); POTASSIUM 3.6 mmol/L (3.5-5.1); SODIUM SERUM 141 mmol/L (136-145); UREA NITROGEN, BLOOD 15 mg/dL (7-18)
--- NOTE | 2021-02-03 07:20 | NUR ---
ENDORSED TO THE MORNING RN FOR CONTINUITY OF CARE.
[2021-02-03 07:21] LABS: MAGNESIUM 1.6 mg/dL (1.8-2.4); PHOSPHORUS 2.1 mg/dL (2.5-4.9)
--- NOTE | 2021-02-03 07:35 | NUR ---
PT RECEIVED FROM COMMERCIAL PRINT SALESMAN RN. PT RESTING IN BED. NO S/S OF DISTRESS AT THIS TIME. CALL LIGHT IS WITHIN REACH. ALL SAFETY MEASURES ARE IN PLACE.
[2021-02-03] MEDS: BLOOD GLUCOSE MONITORING 1 DEV DEV FS SCH ×4 (07:40→20:36)
[2021-02-03 08:00] VITALS: BP 153/97
[2021-02-03] MEDS: NACL 0.9% 1,000 ML IV SCH ×2 (08:00→19:20)
--- NOTE | 2021-02-03 08:03 | NUR ---
PTS BP REASSESSED 153/93, HR 71.
--- NOTE | 2021-02-03 08:19 | NUR ---
MD PALOMINO AT BEDSIDE. PT ASSESSED AND VERBALIZED UNDERSTANDING FOR CONTINUITY OF CARE. REINFORCEMENT NEEDED.
--- NOTE | 2021-02-03 08:37 | NUR ---
PT ENDORSED TO DAY SHIFT RN FOR CONTINUITY OF CARE. PT IS STABLE
--- NOTE | 2021-02-03 08:38 | NUR ---
Received report from [employer]. Pt resting in bed, respirations even & nonlabored in room air, no c/o pain or discomfort. Call light within reach. Bed alarm on. Left wrist 24G IV intact with ongoing NS @ 80ml/hr.
[2021-02-03] MEDS: SODIUM PHOS / POTASSIUM PHOS 1 PKT PDR PO SCH ×3 (08:44→17:45)
[2021-02-03] MEDS: PANTOPRAZOLE 40 MG TABEC PO SCH (08:45)
[2021-02-03] MEDS: CHOLECALCIFEROL 1,000 IU TAB PO SCH (08:45)
[2021-02-03] MEDS: ASPIRIN 81 MG TAB.CHEW PO SCH (08:45)
[2021-02-03] MEDS: FOLIC ACID 1 MG TAB PO SCH (08:45)
[2021-02-03] MEDS ORDERED: lisinopriL 20 MG TAB PO SCH ×2 (09:00→22:30)
--- NOTE | 2021-02-03 13:30 | NUR ---
Patient with soft brown BM, no c/o abd discomfort. Assisted patient with hygiene care.
--- NOTE | 2021-02-03 19:10 | NUR ---
Report given to pm nurse Michelle.
--- NOTE | 2021-02-03 19:15 | NUR ---
RECEIVED PY IN STABLE CONDITION FROM AM NURSE FOR CONTINUITY OF CARE. MED SURG PT. AWAKE,ORIENTED X3. BEDREST. WITH NO C/O ANY DISCOMFORT NOR PAIN NOTED. HAS IVF INFUSING WELL ON THE LT WRIST G24. CLEAR AND PATENT. PLAN OF CARE DISCUSSED AND JUST NEED SOME REINFORCEMENT. FREQ ROUNDS NEEDED. BED ON LOWEST POSITION. SIDE RAILS UP X2 AND CALL LIGHT AND URINAL WITHIN EASY REACH. WILL CONTINUE TO MONITOR.
[2021-02-03 19:38] VITALS: BP 180/114
[2021-02-03] MEDS: hydrALAZINE 20 MG/ML VIAL IVP PRN (19:42)
--- NOTE | 2021-02-03 19:42 | NUR ---
BP CHECKED RESULT ELEVATE 180/114, HR-90. NO C/O PAIN . MEDICATED WITH HYDRALAZINE 10 MG IVP ORDERED PRN. WILL RECHECKED BP AFTER AN HOUR PROTOCOL.
[2021-02-03] MEDS: QUEtiapine FUMARATE 25 MG TAB PO SCH (20:22)
[2021-02-03 20:42] VITALS: BP 172/99
--- NOTE | 2021-02-03 22:00 | NUR ---
PT HAD A LARGE SOFT BM . CLEANED AND KEPT DRY.
--- NOTE | 2021-02-03 22:34 | NUR ---
DR. CARCAMO MADE AWARE ABOUT THE BP 180/114,HR -90 , STILL ELEVATED EVEN 172/99, HR-94 AT 2042 AFTER THE HYDRALAZINE 10MG IVP WAS GIVEN . WITH ORDERS TO CARRY OUT.
[2021-02-03 23:30] VITALS: BP 151/100
--- NOTE | 2021-02-03 23:37 | NUR ---
BP AT THIS TIME 151/100, HR-100 ,LISINOPRIL 20MG PO GIVEN ONCE ORDERED . WILL CONTINUE TO MONITOR.
[2021-02-04 00:40] VITALS: BP 144/96
[2021-02-04] MEDS: NACL 0.9% 1,000 ML IV SCH ×2 (00:41→07:50)
--- NOTE | 2021-02-04 01:59 | NUR ---
PT STILL AWAKE. UNABLE TO GET SOME SLEEP. AMBIEN 5MG PO GIVEN NEEDED. WILL CONTINUE TO MONITOR.
[2021-02-04] MEDS: LORazepam 2 MG/ML VIAL IM/IVP PRN ×2 (03:30→09:39)
--- NOTE | 2021-02-04 03:30 | NUR ---
PT IS GETTING ANXIOUS. TRYING TO GET OUT OF BED. ATIVAN 1MG IVP GIVEN NEEDED. WILL MCONTINUE TO MONITOR.
[2021-02-04] MEDS: metroNIDAZOLE 500 MG/NS PREMIX 100 ML IV SCH ×2 (04:42→12:23)
[2021-02-04 05:15] VITALS: BP 182/117
[2021-02-04] MEDS: hydrALAZINE 20 MG/ML VIAL IVP PRN (05:22)
--- NOTE | 2021-02-04 05:22 | NUR ---
BP ELEVATED 182/117 , HR-84 ASYMPTOMATIC. HYDRALAZINE 10MG IVP GIVEN ORDERED PRN. WILL CONTINUE TO MONITOR.
[2021-02-04 05:30] LABS: ANION GAP 14.1 (8-16); CARBON DIOXIDE 25.4 mmol/L (21-32); CHLORIDE 109 mmol/L (98-107); CREATININE 1.1 mg/dL (0.6-1.3); GLUCOSE 120 mg/dL (74-106); POTASSIUM 3.5 mmol/L (3.5-5.1); SODIUM SERUM 145 mmol/L (136-145); UREA NITROGEN, BLOOD 14 mg/dL (7-18)
[2021-02-04 05:37] LABS: PHOSPHORUS 2.6 mg/dL (2.5-4.9)
[2021-02-04] MEDS: BLOOD GLUCOSE MONITORING 1 DEV DEV FS SCH ×2 (06:02→12:30)
--- NOTE | 2021-02-04 06:02 | NUR ---
BLOOD SUGAR THIS AM 103. NO INSULIN COVERAGE NEEDED.
[2021-02-04 06:16] LABS: BASOPHILS % (AUTO) 0.5 % (0.0-2.0); EOSINOPHILS # (AUTO) 0.2 K/uL (0-0.4); EOSINOPHILS % (AUTO) 4.1 % (0.0-4.0); HEMATOCRIT 38.5 % (36-52); HEMOGLOBIN 12.8 g/dL (12.0-18.0); LYMPHOCYTES # (AUTO) 0.9 K/uL (2.0-11.5); LYMPHOCYTES % (AUTO) 19.8 % (20.5-51.1); MEAN CORPUSCULAR HEMOGLOBIN 32 pg (27-31); MEAN CORPUSCULAR HGB CONC 33 g/dL (33-37); MEAN CORPUSCULAR VOLUME 96.4 fL (80-94); MONOCYTES # (AUTO) 0.5 K/uL (0.8-1.0); MONOCYTES % (AUTO) 10.8 % (1.7-9.3); NEUTROPHILS # (AUTO) 2.9 K/uL (1.8-7.7); NEUTROPHILS % (AUTO) 64.8 % (42.2-75.2); PLATELET COUNT (AUTO) 161 K/uL (140-450); RED BLOOD CELL COUNT(AUTO) 3.99 MIL/uL (4.20-6.10); RED CELL DISTRIBUTION WIDTH 13.2 % (11.6-13.7); WHITE BLOOD COUNT (AUTO) 4.5 K/uL (4.8-10.8)
[2021-02-04 06:22] VITALS: BP 151/106
--- NOTE | 2021-02-04 06:22 | NUR ---
LATEST BP AFTER THE HYDRALAZINE IVP 151/106, HR-104. WILL ENDORSED TO AM NURSE FOR PT IS DUE TO START GETTING AM DOSE OF LISINOPRIL 40MG PO .
--- NOTE | 2021-02-04 07:15 | NUR ---
ENDORSED PT IN STABLE CONDITION TO AM NURSE FOR CONTINUITY OF CARE.
--- NOTE | 2021-02-04 07:16 | NUR ---
RECEIVED ENDORSEMENT AT THIS TIME. PT IS STABLE RESTING IN BED. DENIES ANY DISTRESS. POC DISCUSSED AND WILL CONTINUE.
[2021-02-04 08:00] VITALS: BP 179/109
[2021-02-04] MEDS ORDERED: lisinopriL 20 MG TAB PO SCH (09:00)
--- NOTE | 2021-02-04 09:00 | NUR ---
SCHEDULED MEDICATION GIVEN. PT REQUIRED REDIRECTION DUE TO AGGRESSIVE AND AGITATED BEHAVIOR. PT WAS GIVEN ATIVAN AND TOOK MEDICATIONS WITH APPLE SAUCE WITH LOTS OF PROMPTING. MORNING BP 179/109, 109. PT GIVEN LISINOPRIL PER MD ORDER. PT IS AWAKE AND ALERT UNABLE TO ANSWER QUESTIONS REGARDING ORIENTATION. PT UNCOOPERATIVE WITH ASSESSMENT UNABLE TO HEAR LUNG SOUNDS ABD IS SOFT AND NONTENDER WITH ACTIVE BS X 4. SKIN INTACT HAS IV ACCESS TO LEFT WRIST THAT IS PATENT AND INTACT. REENFORCED WITH WRAP DRESSING.
[2021-02-04] MEDS: ASPIRIN 81 MG TAB.CHEW PO SCH (09:20)
[2021-02-04] MEDS: CHOLECALCIFEROL 1,000 IU TAB PO SCH (09:21)
[2021-02-04] MEDS: PANTOPRAZOLE 40 MG TABEC PO SCH (09:22)
[2021-02-04] MEDS: FOLIC ACID 1 MG TAB PO SCH (09:22)
--- NOTE | 2021-02-04 10:09 | NUR ---
DC CARTRIDGE LOADING OPERATOR: PATIENT WILL BE DISCHARGED BACK TO [facility] TODAY. FAXED OVER PACKET, WAITING ON RESPONSE FOR BED NUMBER. WILL FOLLOW UP. Addendum: 02/04/21 at 1013 by Mercedes Sarah CM DC CARTRIDGE LOADING OPERATOR: SPOKE TO PATIENTS CHELSEA MCMAHON [phone] TO NOTIFY HIM OF DC BACK TO [facility]. Addendum: 02/04/21 at 1018 by Mercedes Sarah CM DC CARTRIDGE LOADING OPERATOR: RECEIVED A CALL FROM ELVIN AT [facility] PATIENT CAN GO TO ROOM 49-[address] UND[address] VARELA. [address] [address] [address] VARELA Addendum: 02/04/21 at 1104 by Mercedes Sarah CM GAVI DEL [place]: CALLED [employer] [facility] [phone] OPT 3 TO EMRE WILLARD. ETA IS 1:00 PM Addendum: 02/04/21 at 1109 by Mercedes Sarah CM [place]AVI [place]: [facility] ASSET ANALYST TIME IS 3:30 PM WITH [employer]
[2021-02-04] MEDS ORDERED: CEPH250C16 PO (10:29)
[2021-02-04] MEDS ORDERED: LISI40TA12 PO (10:29)
--- NOTE | 2021-02-04 10:30 | NUR ---
BP RECHECK 182/109, 100 DR. CARCAMO NOTIFIED AND ORDER TO GIVE HYDRALAZINE 10 MG X 1. NOTIFIED HE HAD HYDRALAZINE 10 MG 5 HOURS AGO. HE ALSO ORDERED METOPROLOL 25 MG PO X 1 NOW.
[2021-02-04] MEDS ORDERED: METO25TA PO (11:07)
[2021-02-04] MEDS ORDERED: hydrALAZINE 20 MG/ML VIAL IVP SCH (11:10)
[2021-02-04] MEDS ORDERED: METOPROLOL SUCCINATE 50 MG TABER PO SCH (11:45)
[2021-02-04 12:00] VITALS: BP 118/79
[2021-02-04 13:33] VITALS: BP 118/79
--- NOTE | 2021-02-04 13:48 | NUR ---
CALL [facility] TO GIVE REPORT TO OUSMANE LEIGH ALL DISCHARGE INSTRUCTIONS GIVEN. CARPENTER CRADLE AND DOLLY TIME 330
--- NOTE | 2021-02-04 14:10 | NUR ---
PT RESTING IN BED SON LISANDRO CALLED AND UPDATED ON STATUS AND HIS RETURN TO [facility].
--- NOTE | 2021-02-04 16:00 | NUR ---
PT DISCHARGED AT THIS TIME. PT DISCHARGED WITH BELONGINGS INCLUDING DENTURES UPPER AND LOWER AND DISCHARGE INSTRUCTIONS PT IS AWAKE WITH RESPIRATION EVEN AND UNLABORED IN NO DISTRESS AT THIS TIME.
[2021-02-05] MEDS ORDERED: METOPROLOL SUCCINATE 50 MG TABER PO SCH (09:00)
== END 2021-02-04 15:00 | DRG 871 ==
LOC: MED 19:54 → MTU 01-31 03:47
PROC: 0D9670Z Drainage of Stomach with Drainage Device, Via Natural or Artificial Opening (ICD-10-PCS; 2021-02-01)
PROC: 0DJ08ZZ Inspection of Upper Intestinal Tract, Via Natural or Artificial Opening Endoscopic (ICD-10-PCS; principal; 2021-02-02 15:55)
DX: A41.9 Sepsis, unspecified organism (principal); N17.0 Acute kidney failure with tubular necrosis; K29.71 Gastritis, unspecified, with bleeding; K56.7 Ileus, unspecified; N39.0 Urinary tract infection, site not specified; K52.9 Noninfective gastroenteritis and colitis, unspecified; I71.4 Abdominal aortic aneurysm, without rupture; R65.20 Severe sepsis without septic shock; I72.2 Aneurysm of renal artery; I25.10 Atherosclerotic heart disease of native coronary artery without angina pectoris; E05.90 Thyrotoxicosis, unspecified without thyrotoxic crisis or storm; I10 Essential (primary) hypertension; F39 Unspecified mood [affective] disorder; E55.9 Vitamin D deficiency, unspecified; F03.90 Unspecified dementia, unspecified severity, without behavioral disturbance, psychotic disturbance, mood disturbance, and anxiety; E86.0 Dehydration; N28.1 Cyst of kidney, acquired; K21.9 Gastro-esophageal reflux disease without esophagitis; M19.90 Unspecified osteoarthritis, unspecified site; E11.9 Type 2 diabetes mellitus without complications; R79.89 Other specified abnormal findings of blood chemistry; Z20.822 Contact with and (suspected) exposure to COVID-19; Z86.73 Personal history of transient ischemic attack (TIA), and cerebral infarction without residual deficits; Z79.899 Other long term (current) drug therapy; Z79.82 Long term (current) use of aspirin
CPT/HCPCS: 36415; 71045; 74250; 80048; 80053; 81001; 82140; 82150; 82948; 83036; 83605; 83690; 83735; 83880; 84100; 84134; 84436; 84443; 84484; 85025; 85610; 85730; 87040; 87081; 87086; 93005; 96361; 96365; 96367; 96374; 96375; 99285; C9113; J0360; J0696; J1815; J2060; J2250; J2270; J2405; J3010; J3475; J3490; J7030; J7060; Q9967